=== PATIENT | male | born 1950 | race Caucasian/White ===

== ENCOUNTER 2016-08-23 17:43 | Inpatient (IN) | payer MEDICARE, OTHER ==
[~2016-08-23 17:43] MED LIST: ROCURONIUM BROMIDE INJ 50 MG/5 ML VIAL IV ONE; SUCCINYLCHOLINE CHLORIDE INJ 200 MG/10 ML VIAL ONE
[2016-08-23] MEDS ORDERED: NORMAL SALINE 1000 ML 1,000 ML IV ONE (18:26)
[2016-08-23] MEDS ORDERED: MORPHINE SULFATE 10 MG/ML INJ IV PRN (18:26)
--- NOTE | 2016-08-23 18:26 | ER Document Report ---
ED General - General Stated Complaint: ABDOMINAL PAIN Time Seen by Provider: 08/23/16 18:13 Notes: Patient is a 65-year-old male with a complex past medical history including hypertension, hyperlipidemia, prior throat cancer, prior lung cancer both treated with local radiation and surgical removal, prior history of a CABG, multiple aortic aneurysm repairs in the abdomen which has required a tracheostomy and feeding tube placement in the past, ongoing tobacco and alcohol dependency who presents with acute onset of progressively worsening abdominal pain. Patient states 3-4 hours ago he began developing progressively worse diffuse, cramping, aching pain in his abdomen. He has multiple associated episodes of nonbilious vomiting. Nothing improves or worsens the pain. He denies any history of similar symptoms in the past. He arrives via EMS. Denies any associated chest pain, shortness of breath or altered mental status. TRAVEL OUTSIDE OF THE [place] IN LAST 30 DAYS: No - Related Data Allergies/Adverse Reactions: acetaminophen [From Percocet] Allergy (Verified 08/23/16 19:20) levofloxacin [From Levaquin] Allergy (Verified 08/23/16 19:20) lorazepam [From Ativan] Allergy (Verified 08/23/16 19:20) morphine Allergy (Verified 08/23/16 19:20) oxycodone [From Percocet] Allergy (Verified 08/23/16 19:20) Penicillins Allergy (Verified 08/23/16 19:20) Home Medications: Current Home Medications Aspirin [[place] Aspirin] 81 mg PO DAILY 08/24/16 [History] Past Medical History - General Information source: Patient - Social History Smoking Status: Current Every Day Smoker Frequency of alcohol use: Heavy Drug Abuse: None Lives with: Spouse/Significant other Family History: Reviewed & Not Pertinent Review of Systems - Review of Systems Notes: Constitutional: Negative for fever. HENT: Negative for sore throat. Eyes: Negative for visual changes. Cardiovascular: Negative for chest pain. Respiratory: Negative for shortness of breath. Gastrointestinal: Positive for abdominal pain and vomiting Genitourinary: Negative for dysuria. Musculoskeletal: Negative for back pain. Skin: Negative for rash. Neurological: Negative for headaches, weakness or numbness. 10 point ROS negative except as marked above and in HPI. Physical Exam - Vital signs Vitals: Temp Pulse Resp BP Pulse Ox 98 F 98 22 H 171/77 H 100 08/23/16 17:55 08/23/16 17:55 08/23/16 17:55 08/23/16 17:55 08/23/16 17:55 Interpretation: Hypertensive, Tachypneic Notes: PHYSICAL EXAMINATION: GENERAL: Ill in appearance, appears to be in significant pain. HEAD: Atraumatic, normocephalic. EYES: Pupils equal round and reactive to light, extraocular movements intact, sclera anicteric, conjunctiva are normal. ENT: nares patent, oropharynx clear without exudates. Dry mucous membranes. NECK: Normal range of motion, supple without lymphadenopathy LUNGS: Breath sounds clear to auscultation bilaterally and equal. No wheezes rales or rhonchi. HEART: Regular rate and rhythm without murmurs ABDOMEN: Mildly distended, diffusely tender worse in the upper quadrants. No rebound but has diffuse involuntary guarding. Concerning for an acute abdomen. EXTREMITIES: Normal range of motion, no pitting or edema. No cyanosis. NEUROLOGICAL: No focal neurological deficits. Moves all extremities spontaneously and on command. PSYCH: Normal mood, normal affect. SKIN: Warm, Dry, normal turgor, no rashes or lesions noted. Course - Re-evaluation Re-evalutation: 08/23/16 18:24 Patient presents with acute onset of upper abdominal pain with associated nonbilious vomiting that started approximately 2 hours prior to arrival. Patient is ill in appearance, slightly icteric skin, in obvious distress secondary to pain. Vitals are notable for hypertension but otherwise unremarkable. His abdominal exam shows diffuse abdominal tenderness worse in the upper quadrant although patient is complaining significantly about pain radiating into his mid back when laying flat. He denies any chest pain or shortness of breath. Primary diagnostic considerations at this time include acute pancreatitis, acute cholecystitis, possible aortic dissection or aneurysmal rupture as patient does have a history of several prior aortic repairs. Patient will be sent for CTA of the abdomen and pelvis to evaluate as well as labs, symptomatic treatment and reassessment. Patient is critically ill at this time with an acute abdomen. 08/23/16 19:48 CTA was findings consistent with a volvulus. I discussed this with the surgeon oil and gas exploration technician Dr. Tong who will consult. Patient remains ill in appearance, diffusely tender abdomen 08/23/16 20:44 I have discussed this case with the patient, his , Dr. Tong extensively at the bedside. The family had originally requested to be transferred to [facility] for the surgical management given their prior evaluations at that facility. However, I reviewed with him the delaying care that would result with either ground or air transport and the possible adverse events secondary to that including gut ischemia and worse case scenario . After reviewing risks and benefits of each approach, the family became agreeable to being admitted here and going to the operating room with Dr. Tong. Remains in significant pain despite IV analgesia. - Vital Signs Vital signs: Temp Pulse Resp BP Pulse Ox 97.0 F 66 12 172/72 H 97 08/23/16 23:37 08/23/16 23:37 08/23/16 23:37 08/23/16 23:37 08/24/16 00:11 - Laboratory Result Diagrams: 08/24/16 00:06 08/24/16 00:06 Laboratory results interpreted by me: 08/23/16 08/23/16 18:20 18:20 WBC 12.8 H RBC 4.30 L MCV 101 H Seg Neuts % (Manual) 87 H Band Neutrophils % 1 L Lymphocytes % (Manual) 1 L Abs Neuts (Manual) 11.3 H Abs Lymphs (Manual) 0.3 L Sodium 130.6 L Chloride 93 L Glucose 159 H - Diagnostic Test Radiology reviewed: Reports reviewed - EKG Interpretation by Me Additional EKG results interpreted by me: 08/24/16 02:32 Sinus rhythm. Rate 64. No ST elevations or depressions. QTC is 504. Critical Care Note - Critical Care Note Total time excluding time spent on procedures (mins): 40 Comments: Critical care time spent obtaining history from patient or surrogate, discussions with consultants, development of treatment plan with patient or surrogate, evaluation of patient's response to treatment, examination of patient , ordering and performing treatments and interventions, ordering and review of laboratory studies, re-evaluation of patient's condition, ordering and review of radiographic studies and review of old charts Discharge - Discharge Clinical Impression: Volvulus, Acute abdomen Condition: Critical Disposition: ADMITTED INPATIENT Admitting Provider: Lennieist Nacho Tong Unit Admitted: OR
[2016-08-23 18:36] LABS: HEMATOCRIT 43.6 % (37.9-51.0); HEMOGLOBIN 14.4 g/dL (13.5-17.0); HGB HCT DIFFERENCE -0.4; MEAN CORPUSCULAR HEMOGLOBIN 33.4 pg (27.0-33.4); MEAN CORPUSCULAR VOLUME 101 fl (80-97); RED CELL DISTRIBUTION WIDTH 13.2 % (11.5-14.0); WHITE BLOOD COUNT 12.8 10^3/uL (4.0-10.5)
[2016-08-23 18:52] LABS: ALANINE AMINOTRANSFERASE 32 U/L (21-72); ALBUMIN 4.8 g/dL (3.5-5.0); ALKALINE PHOSPHATASE 100 U/L (38-126); ANION GAP 16 (5-19); ASPARTATE AMINO TRANSFERASE 29 U/L (17-59); BILIRUBIN,DIRECT 0.4 mg/dL (0.0-0.4); BILIRUBIN,TOTAL 0.9 mg/dL (0.2-1.3); BLOOD UREA NITROGEN 17 mg/dL (7-20); CARBON DIOXIDE 22 mmol/L (22-30); CHLORIDE 93 mmol/L (98-107); CREATININE RESULT 0.65 mg/dL (0.52-1.25); GLUCOSE 159 mg/dL (75-110); LIPASE 43.6 U/L (23-300); POTASSIUM 4.2 mmol/L (3.6-5.0); SODIUM 130.6 mmol/L (137-145); TOTAL PROTEIN 7.9 g/dL (6.3-8.2)
[2016-08-23 19:01] LABS: BAND NEUTROPHILS % (MANUAL) 1 % (3-5); BASOPHILS % (MANUAL) 0 % (0-2); EOSINOPHILS % (MANUAL) 0 % (0-6); LYMPHOCYTES % (MANUAL) 1 % (13-45); TOTAL CELLS COUNTED 100
[2016-08-23 19:02] LABS: RBC MORPHOLOGY COMMENT NORMO-CYTIC/CHROMIC
[2016-08-23] MEDS: FENTANYL CITRATE INJ/PF 100 MCG/2 ML AMPUL IV PRN ×2 (19:14→20:34)
--- NOTE | 2016-08-23 19:18 | RADIOLOGY REPORT (SQ) ---
EXAM DESCRIPTION: CTA ABDOMEN/PELVIS W WO COMPLETED DATE/TIME: 08/23/2016 6:50 pm REASON FOR STUDY: acute upper ab pain, hx aaa COMPARISON: None. TECHNIQUE: CT scan of the abdominal aorta extending to the iliac bifurcation performed with and with out intravenous contrast using helical scanning technique with dynamic intravenous contrast injection . Images reviewed with lung, soft tissue, and bone windows. Reconstructed coronal and sagittal MPR im ages reviewed. All images stored on PACS. Advanced 3D imaging as volume rendering, MIPS, SSD performed? yes All CT scanners at this facility use dose modulation, iterative reconstruction, and/or weight based d osing when appropriate to reduce radiation dose to as low as reasonably achievable (ALARA). [facility]: Dose Right [facility]: CareDose [facility]: Dose Right [facility]: Teradose 4D [facility]: Evomail CONTRAST TYPE AND DOSE: contrast/concentration: Isovue 370.00 mg/ml; Total Contrast Delivered: 100.0 ml; Total Saline Delivered: 90.0 ml RENAL FUNCTION: Due to the severity of the patient's condition, the ordering physician elected to pr oceed with intravenous contrast in the absence of current labs. LIMITATIONS: None. FINDINGS: NON-CONTRASTED IMAGING: No significant renal or bladder calcifications. No other significa nt organ calcifications. POST-CONTRAST IMAGING: AORTA AND VESSELS: Status post EVAR of an infrarenal abdominal aortic aneurysm without evidence of en doleak. LUNG BASES: No significant findings. No nodules or infiltrates. LIVER: Normal size. No masses or dilated ducts. SPLEEN: Normal size. No focal lesions. PANCREAS: No masses. No significant calcifications. No adjacent inflammation or peripancreatic fluid collections. Pancreatic duct not dilated. GALLBLADDER: No identified stones by CT criteria. No inflammatory changes to suggest cholecystitis. ADRENAL GLANDS: No significant masses or asymmetry. RIGHT KIDNEY AND URETER: Sub cm hypoattenuating foci likely on the basis of tiny renal cysts. LEFT KIDNEY AND URETER: Few simple renal cysts, the largest measuring 4.3 x 3.6 x 3.6 cm. RETROPERITONEUM: No retroperitoneal adenopathy, hemorrhage or masses. BOWEL AND PERITONEAL CAVITY: Limited in the absence of intraluminal contrast; note is made of multipl e fluid distended loops of small bowel with air-fluid levels and mesenteric fluid tracking. Few scat tered colonic diverticula without focal infectious/inflammatory change. Notably, there appears to be a "whirl sign" of the mesenteric vessels, suggesting midgut volvulus (this is best visualized on ar terial phase axial images 79 through 113). APPENDIX: Not visualized. ABDOMINAL WALL: No masses. No hernias. BONY STRUCTURES: No significant or acute findings. 3-D IMAGING: Confirms the above findings. OTHER: No other significant finding. IMPRESSION: 1. Status post EVAR without evidence of endoleak. 2. Multiple fluid distended loops of small bowel with air-fluid levels and mesenteric fluid tracking . 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 TECHNICAL DOCUMENTATION: JOB ID: [id number] Quality ID # [id number]: Final reports with documentation of one or more dose reduction techniques (e.g., Au tomated exposure control, adjustment of the mA and/or kV according to patient size, use of iterative reconstruction technique) 2010 [employer]- All Rights Reserved
[2016-08-23] MEDS ORDERED: MIDAZOLAM 2 MG/2 ML INJ IV ONE (19:26)
[2016-08-23] MEDS ORDERED: ERTAPENEM SODIUM INJ 1 GM VIAL IV PRN (20:46)
[2016-08-23 21:25] LABS: ARTERIAL BLOOD BASE EXCESS -1.5 mmol/L; ARTERIAL BLOOD O2 SATURATION 95.8 % (94-98)
[2016-08-23] MEDS ORDERED: PROPOFOL INJ 200 MG/20 ML VIAL IV ONE (21:26)
[2016-08-23] MEDS ORDERED: MIDAZOLAM 2 MG/2 ML INJ ONE (21:26)
[2016-08-23] MEDS ORDERED: FENTANYL CITRATE INJ/PF 250 MCG/5 ML AMPULE ONE (21:26)
[2016-08-23] MEDS ORDERED: ACETAMINOPHEN 0 ML IV ONE (21:27)
[2016-08-23] MEDS ORDERED: HYDROMORPHONE HCL INJ/PF 2 MG/ML AMPULE ONE (21:27)
[2016-08-23] MEDS ORDERED: ERTAPENEM SODIUM 1 GM in NORMAL SALINE 50 ML IV ONE (21:30)
--- NOTE | 2016-08-23 21:46 | RADIOLOGY REPORT (SQ) ---
EXAM DESCRIPTION: CHEST SINGLE VIEW COMPLETED DATE/TIME: 08/23/2016 9:23 pm REASON FOR STUDY: preop COMPARISON: 10/23/2011 EXAM PARAMETERS: NUMBER OF VIEWS: One view. TECHNIQUE: Single frontal radiographic view of the chest acquired. RADIATION DOSE: NA LIMITATIONS: None. FINDINGS: LUNGS AND PLEURA: No opacities, masses or pneumothorax. No pleural effusion. MEDIASTINUM AND HILAR STRUCTURES: No masses. Contour normal. HEART AND VASCULAR STRUCTURES: Heart normal in size. Normal vasculature. BONES: No acute findings. HARDWARE: In enteric tube terminates subdiaphragmatically within the left upper quadrant. Median bre rnotomy wires are again noted. OTHER: No other significant finding. IMPRESSION: NO ACUTE RADIOGRAPHIC FINDING IN THE CHEST. TECHNICAL DOCUMENTATION: JOB ID: [id number]
[2016-08-23] MEDS ORDERED: LABETALOL HCL INJ 20 MG/4 ML DISP.SYRIN IV ONE (22:18)
[2016-08-23] MEDS ORDERED: HYDRALAZINE HCL INJ/PF 20 MG/1 ML SDV ONE (22:19)
[2016-08-23] MEDS ORDERED: PROMETHAZINE HCL INJ 25 MG/1 ML VIAL IV PRN ×2 (22:46)
[2016-08-23] MEDS ORDERED: FENTANYL CITRATE INJ/PF 100 MCG/2 ML AMPUL IV PRN ×3 (22:46)
[2016-08-23] MEDS ORDERED: MEPERIDINE HCL/PF INJ 25 MG/1 ML DISP.SYRIN IV PRN (22:46)
[2016-08-23] MEDS ORDERED: DIPHENHYDRAMINE HCL 50 MG/ML VIAL IV PRN (22:46)
--- NOTE | 2016-08-23 23:45 | HISTORY AND PHYSICAL E ---
History and Physical NAME: CHUNG HI : 1950 AGE: 65Y ADMITTED: 08/23/2016 ROOM: ED06 REASON FOR ADMISSION: Acute abdominal pain. HISTORY OF PRESENT ILLNESS: The patient is a 65-year-old male who earlier today at approximately 11 a.m. had severe onset of diffuse abdominal pain. This is the first time he has had this occur. He has been having normal bowel movements up to that point. He has had upset stomach and so his had given him some Pepto-Bismol. He had promptly vomited this up. The pain persisted and was constant. It was 11/25, because of this he was then brought to the hospital by ambulance. PAST MEDICAL HISTORY: 1. Peripheral arterial disease. 2. History of possible right lung cancer versus benign lesion. Undergoing what appears to be VATS a year ago. 3. History of throat cancer. Undergoing radiation in which he may have some scar tissue still in his throat that ENT was going to remove as an outpatient in the near future. 4. History of abdominal aortic aneurysm. Undergoing open repair endovascular due to some type of complication or problems with it. 5. Hypothyroidism. 6. Hypercholesterolemia. 7. Hypertension. 8. Gastroesophageal reflux. 9. Anxiety. 10. Tobacco dependency. 11. Alcohol dependency. PAST SURGICAL HISTORY: 1. Abdominal aortic aneurysm repair and then endovascular afterwards for unknown complication. 2. Coronary artery bypass. 3. Right lung surgery. 4. Bilateral inguinal hernia repair. MEDICATIONS: 1. Aspirin. 2. Venlafaxine. 3. Omeprazole. 4. Levothyroxine. 5. Pilocarpine. 6. Atorvastatin. 7. Ramipril. HABITS: The patient smokes 2 packs of cigarettes a day. He drinks alcohol each day but he is not able to quantitate, as some days he does not drink at all. FAMILY HISTORY: Mother with history of peripheral arterial disease and coronary artery disease. SOCIAL HISTORY: The patient is . ALLERGIES: 1. LEVAQUIN. 2. MORPHINE. 3. PERCOCET. 4. PENICILLIN. 5. ATIVAN. REVIEW OF SYSTEMS: GASTROINTESTINAL: Dysphagia. Abdominal pain with some emesis earlier today. PULMONARY: Some shortness of breath. CARDIOVASCULAR: Denies any current chest pain. EXTREMITIES: Denies any claudication or lower extremity swelling. PHYSICAL EXAMINATION: VITAL SIGNS: Temperature is 98, blood pressure 171/77, respiratory rate is 22. GENERAL: The patient is lying in bed. He is anxious due to feeling hot and anxiety. EYES: Not icteric. NECK: No lymphadenopathy. HEART: Regular. LUNGS: Diminished due to decreased inspiration. ABDOMEN: Mildly distended, diffusely tender. It is not rigid. There is no abdominal hernias being palpated. He has midline incisional scar. CHEST: Midline scar. EXTREMITIES: No edema or cyanosis. NEUROLOGIC: The patient appears to be neurologically intact without any deficits. PSYCHOLOGICAL: The patient is anxious but is able to answer questions. DIAGNOSTIC DATA: CT scan of the abdomen and pelvis shows dilated small bowel with a swirl sign that is highly suspicious for small intestinal volvulus. White blood cell count is 13,000; hemoglobin 14; platelets of 236. Sodium 130, creatinine of 0.65. ASSESSMENT: 1. Acute onset of abdominal pain. CT scan is suggestive of a mid volvulus. I have explained that this is a surgical emergency and that he needs to have surgery as soon as possible. They initially had wanted to go up to [place] but time constraints would be too much since their surgeon is going into surgery and I would not recommend waiting until that is finished. Family understands and agrees to have surgery here at [facility]. The surgery would be exploratory laparotomy, possible bowel resection, possible ostomy. Risks and possible complications of the procedure have been explained, include but not limited to bleeding, infection, anesthesia risk, heart and lung problems, wound healing problems, hernia formation, anastomotic leak, injury to abdominal structures, enterotomies, possible removal of a large section of small bowel with short gut syndrome needing beyond enteric nutrition the rest of his life, transfusion reactions. He accepts the risks and wishes to proceed with the procedure. 2. History of chronic tobacco use with probable lung disease. We will need to see if he will be off the ventilator after surgery or not. The hospitalist will help follow the patient postoperatively in the Intensive Care Unit. 3. Hypothyroidism, on medication. 4. Dysphagia, which he has scar tissue and ENT to evaluate with surgery in the near future. It does not seem at this time to pose a problem but certainly could with intubation and this will need to be evaluated here closely. 5. Coronary artery disease, status post coronary artery bypass graft. He will get an EKG prior. PLAN: 1. The patient will be admitted to the hospital. 2. NPO. 3. IV fluids. 4. IV antibiotics. 5. NG tube to low wall suction. 6. Lactic acid. 7. A 12-lead EKG, chest x-ray, and ABG. 8. Exploratory laparotomy and possible bowel resection, possible ostomy. DICTATING PHYSICIAN: ELIDA TORRES M.D. [id number] PHY#: [id number] ID: [id number] JOB#: [id number] ACCT: [id number] cc:ELIDA TORRES M.D. >
[2016-08-24] MEDS ORDERED: DEXTROSE 5%-LACTATED RINGERS 1,000 ML IV PRN (00:01)
[2016-08-24] MEDS ORDERED: PROPOFOL 100 ML IV ONE (00:06)
[2016-08-24 00:24] LABS: MEAN CORPUSCULAR HEMOGLOBIN 33.6 pg (27.0-33.4); MEAN CORPUSCULAR HGB CONC 33.4 g/dL (32.0-36.0); MEAN CORPUSCULAR VOLUME 101 fl (80-97); RED BLOOD COUNT 4.48 10^6/uL (4.35-5.55); RED CELL DISTRIBUTION WIDTH 12.9 % (11.5-14.0); WHITE BLOOD COUNT 11.6 10^3/uL (4.0-10.5)
[2016-08-24 00:32] LABS: BAND NEUTROPHILS % (MANUAL) 2 % (3-5); BASOPHILS % (MANUAL) 0 % (0-2); EOSINOPHILS % (MANUAL) 0 % (0-6); LYMPHOCYTES % (MANUAL) 1 % (13-45); TOTAL CELLS COUNTED 100
[2016-08-24 00:34] LABS: PLATELET CLUMPS PRESENT; TOXIC VACUOLATION PRESENT
[2016-08-24 00:35] LABS: RBC MORPHOLOGY COMMENT NORMO-CYTIC/CHROMIC
[2016-08-24 00:39] LABS: ALANINE AMINOTRANSFERASE 33 U/L (21-72); ALKALINE PHOSPHATASE 68 U/L (38-126); ANION GAP 12 (5-19); ASPARTATE AMINO TRANSFERASE 28 U/L (17-59); BILIRUBIN,DIRECT 0.4 mg/dL (0.0-0.4); BILIRUBIN,TOTAL 0.6 mg/dL (0.2-1.3); BLOOD UREA NITROGEN 15 mg/dL (7-20); CALCIUM 8.9 mg/dL (8.4-10.2); CARBON DIOXIDE 23 mmol/L (22-30); CHLORIDE 97 mmol/L (98-107); CREATININE RESULT 0.63 mg/dL (0.52-1.25); GLUCOSE 178 mg/dL (75-110); POTASSIUM 4.1 mmol/L (3.6-5.0); TOTAL PROTEIN 6.7 g/dL (6.3-8.2)
--- NOTE | 2016-08-24 00:42 | RADIOLOGY REPORT (SQ) ---
EXAM DESCRIPTION: CHEST SINGLE VIEW COMPLETED DATE/TIME: 08/24/2016 12:32 am REASON FOR STUDY: et tube placement COMPARISON: 08/23/2016. 10/23/2011. EXAM PARAMETERS: NUMBER OF VIEWS: One view. TECHNIQUE: Single frontal radiographic view of the chest acquired. RADIATION DOSE: NA LIMITATIONS: None. FINDINGS: LUNGS AND PLEURA: Mild emphysematous hyperinflation. MEDIASTINUM AND HILAR STRUCTURES: No masses. Contour normal. HEART AND VASCULAR STRUCTURES: Heart normal in size. Normal vasculature. BONES: No acute findings. HARDWARE: Adequate appearing NG tube and endotracheal tube. Prior sternotomy. OTHER: No other significant finding. IMPRESSION: No acute cardiopulmonary findings. TECHNICAL DOCUMENTATION: JOB ID: [id number]
[2016-08-24] MEDS ORDERED: HYDRALAZINE HCL INJ/PF 20 MG/1 ML SDV IV PRN (00:46)
[2016-08-24] MEDS ORDERED: PROPOFOL 100 ML IV PRN (00:53)
[2016-08-24] MEDS ORDERED: NORMAL SALINE 1000 ML 1,000 ML IV ONE (01:00)
[2016-08-24] MEDS: HYDROMORPHONE HCL INJ/PF 2 MG/ML AMPULE IV PRN ×8 (02:42→23:40)
--- NOTE | 2016-08-24 04:03 | OPERATIVE REPORT E ---
Operative Report NAME: CHUNG HI : 1950 AGE: 65Y DATE OF SURGERY: 08/23/2016 ROOM: 603 PREOPERATIVE DIAGNOSIS: Acute abdomen, probably secondary to mid gut volvulus. POSTOPERATIVE DIAGNOSES: 1. 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 2. Small multiple ventral incisional hernias. 3. Intraabdominal adhesions. OPERATIONS: 1. Exploratory laparotomy. 2. Extensive lysis of adhesions. 3. Reduction of mid gut volvulus. 4. Repair of multiple small ventral incisional hernias primarily. SURGEON: ELIDA TORRES M.D. ANESTHESIA: General. INDICATION FOR PROCEDURES: The patient a 65-year-old male, who had previous triple A repair in the past. He now presents with acute onset of abdominal pain, nausea and vomiting. He came to the emergency room and a CT scan of the abdomen and pelvis was suspicious for mid gut volvulus. FINDINGS OF PROCEDURES: The patient's almost entire small bowel was involved in a twist around the axis of the mesentery, just sparing the terminal ileum region. The bowel was dusky upon entering the abdominal cavity. Extensive lysis of adhesions was needed in order to allow full reduction and untwisting of the bowel. This took at a minimum 1-1/2 hours to perform. Once adequate lysis of adhesion was performed, I was able to untwist the small bowel counter clockwise. Once I had untwisted and had straightened out the mesentery, the bowel quickly pinked up without any areas that were suspicious for continue ischemia or necrosis. I was then able to return the small bowel back to the abdominal cavity, laying it so that there was no area being twisted. Small ventral incisional hernias had the hernia sac opened up with the subcutaneous tissue then dissected off of the surrounding fascia defect. The midline abdominal incision was then closed using running #1 PDS suture. The skin was stapled closed. Dry dressing was placed on top. The patient was then awakened, extubated and taken from the operating room in stable condition. ESTIMATED BLOOD LOSS: 100 mL. COMPLICATIONS: None. CONDITION: At the end of the procedure, the patient was stable. SPECIMENS: None. DRAINS/PACKS: None. CLASSIFICATION: The wound is clean. DICTATING PHYSICIAN: ELIDA TORRES M.D. [id number] PHY#: [id number] ID: [id number] JOB#: [id number] ACCT: [id number] cc:ELIDA TORRES M.D. > MTDD
[2016-08-24 04:23] LABS: HEMATOCRIT 41.9 % (37.9-51.0); HEMOGLOBIN 13.5 g/dL (13.5-17.0); HGB HCT DIFFERENCE -1.4; MEAN CORPUSCULAR HEMOGLOBIN 32.6 pg (27.0-33.4); MEAN CORPUSCULAR HGB CONC 32.2 g/dL (32.0-36.0); MEAN CORPUSCULAR VOLUME 101 fl (80-97); RED BLOOD COUNT 4.14 10^6/uL (4.35-5.55); WHITE BLOOD COUNT 12.5 10^3/uL (4.0-10.5)
[2016-08-24 04:41] LABS: ANION GAP 10 (5-19); BLOOD UREA NITROGEN 17 mg/dL (7-20); CALCIUM 8.6 mg/dL (8.4-10.2); CARBON DIOXIDE 24 mmol/L (22-30); CHLORIDE 96 mmol/L (98-107); CREATININE RESULT 0.68 mg/dL (0.52-1.25); GLUCOSE 213 mg/dL (75-110); POTASSIUM 3.8 mmol/L (3.6-5.0); SODIUM 129.7 mmol/L (137-145); TRIGLYCERIDES 43 mg/dL (<150)
--- NOTE | 2016-08-24 05:24 | PDOC CONSULTATION ---
Consultation Consult Date: 08/23/16 Attending physician:: TRACI TORRES Consult reason:: Postop medical management History of Present Illness Admission Date/PCP: 08/23/16 21:11 Patient complains of: Medical management of postop volvulus History of Present Illness: CHUNG HI is a 65 year old male with an extensive past medical history including AAA repair, coronary artery bypass grafting, tobacco dependence, peripheral vascular disease, lung, head and neck cancer status post resection. He presents to the emergency room with abdominal pain and distention. He requires operative evaluation finding volvulus with adhesions without necrosis. Postoperatively he is intubated, sedated appearing comfortable on ventilator at current settings. Additional history is unavailable as the patient is nonverbal and not previously seen in our institution. Past Medical History Cardiac Medical History: Reports: Coronary Artery Disease, Hyperlipidema, Hypertension, Peripheral Vascular Disease Malignancy Medical History: Reports: Lung Cancer, Other - Head and neck cancer status post resection remotely Musculoskeltal Medical History: Reports: Arthritis Psychiatric Medical History: Reports: Tobacco Dependency Denies: Depression Past Surgical History Past Surgical History: Reports: Cardiac Catheterization, Coronary Artery Bypass Graft, Vascular Surgery Social History Information Source: [facility] Records Lives with: Spouse/Significant other Smoking Status: Current Every Day Smoker Cigarettes Packs Per Day: 2 Number of Years Smokin Last Time Smoked: 08/23/16 Frequency of Alcohol Use: Heavy Hx Recreational Drug Use: No Drugs: None Hx Prescription Drug Abuse: No - Advance Directive Resuscitation Status: Full Code Family History Family History: Reviewed & Not Pertinent Parental Family History Reviewed: Yes - Unobtainable Children Family History Reviewed: Yes - Unobtainable Sibling(s) Family History Reviewed.: Yes - Unobtainable Medication/Allergy Home Medications: Aspirin [Aspirin EC] 81 mg PO DAILY 08/24/16 Atorvastatin Calcium [Lipitor 20 mg Tablet] 20 mg PO QHS 08/24/16 Cholecalciferol (Vitamin D3) [Vitamin D3 1000 Unit Tablet] 1,000 units PO DAILY 08/24/16 Cyanocobalamin (Vitamin B-12) [Vitamin B-12] 1,000 mcg PO QAM 08/24/16 Levothyroxine Sodium [Synthroid] 125 mcg PO DAILY 08/24/16 Omeprazole 20 mg PO BID 08/24/16 Pilocarpine HCl 5 mg PO TID 08/24/16 Ramipril [Altace 5 mg Capsule] 5 mg PO QAM 08/24/16 Thiamine HCl [Vitamin B-1] 100 mg PO DAILY 08/24/16 Venlafaxine HCl [Venlafaxine HCl ER] 75 mg PO BID 08/24/16 Allergies/Adverse Reactions: acetaminophen [From Percocet] Allergy (Verified 08/23/16 19:20) levofloxacin [From Levaquin] Allergy (Verified 08/23/16 19:20) lorazepam [From Ativan] Allergy (Verified 08/23/16 19:20) morphine Allergy (Verified 08/23/16 19:20) oxycodone [From Percocet] Allergy (Verified 08/23/16 19:20) Penicillins Allergy (Verified 08/23/16 19:20) Review of Systems ROS unobtainable: Due to mental status - Intubated and sedated Physical Exam Vital Signs: Temp Pulse Resp BP Pulse Ox 97.7 F 66 12 78/55 L 96 08/24/16 04:00 08/23/16 23:37 08/24/16 03:02 08/24/16 03:02 08/24/16 04:00 Intake & Output 08/22/16 08/23/16 08/24/16 11:59 11:59 11:59 Weight 69.3 kg General appearance: PRESENT: no acute distress, thin, other - Intubated sedated appearing comfortable on ventilator settings Head exam: PRESENT: other - Status post radical neck dissection Eye exam: PRESENT: conjunctiva pink, EOMI, PERRLA. ABSENT: scleral icterus Ear exam: PRESENT: normal external ear exam Mouth exam: PRESENT: moist, tongue midline Neck exam: ABSENT: carotid bruit, JVD, lymphadenopathy, thyromegaly Respiratory exam: PRESENT: crackles, prolonged expiratory phas, symmetrical. ABSENT: rales, rhonchi, stridor, tachypnea, wheezes Cardiovascular exam: PRESENT: RRR. ABSENT: diastolic murmur, rubs, systolic murmur Pulses: PRESENT: normal dorsalis pedis pul Vascular exam: PRESENT: normal capillary refill GI/Abdominal exam: PRESENT: diminished bowel sounds, hypoactive bowel sounds, other - Surgical dressing in place. ABSENT: ascites, distended, guarding Rectal exam: PRESENT: deferred Extremities exam: PRESENT: full ROM. ABSENT: calf tenderness, clubbing, pedal edema Neurological exam: PRESENT: other - Heavily sedated. ABSENT: motor sensory deficit Skin exam: PRESENT: dry, intact, warm. ABSENT: cyanosis, rash Results Laboratory Results: 08/24/16 03:49 08/24/16 03:49 08/24/16 08/24/16 08/24/16 00:06 00:06 00:06 WBC 11.6 H RBC 4.48 Hgb 15.0 Hct 45.0 MCV 101 H MCH 33.6 H MCHC 33.4 RDW 12.9 Plt Count 206 Seg Neutrophils % Not Reportable Lymphocytes % Not Reportable Monocytes % Not Reportable Eosinophils % Not Reportable Basophils % Not Reportable Absolute Neutrophils Not Reportable Absolute Lymphocytes Not Reportable Absolute Monocytes Not Reportable Absolute Eosinophils Not Reportable Absolute Basophils Not Reportable Sodium 132.0 L Potassium 4.1 Chloride 97 L Carbon Dioxide 23 Anion Gap 12 BUN 15 Creatinine 0.63 Est GFR ( Amer) > 60 Est GFR (Non-Af Amer) > 60 Glucose 178 H Lactic Acid 1.5 Calcium 8.9 Total Bilirubin 0.6 AST 28 ALT 33 Alkaline Phosphatase 68 Total Protein 6.7 Albumin 4.0 Triglycerides 08/24/16 08/24/16 03:49 03:49 WBC 12.5 H RBC 4.14 L Hgb 13.5 Hct 41.9 MCV 101 H MCH 32.6 MCHC 32.2 RDW 13.0 Plt Count 220 Seg Neutrophils % Lymphocytes % Monocytes % Eosinophils % Basophils % Absolute Neutrophils Absolute Lymphocytes Absolute Monocytes Absolute Eosinophils Absolute Basophils Sodium 129.7 L Potassium 3.8 Chloride 96 L Carbon Dioxide 24 Anion Gap 10 BUN 17 Creatinine 0.68 Est GFR ( Amer) > 60 Est GFR (Non-Af Amer) > 60 Glucose 213 H Lactic Acid Calcium 8.6 Total Bilirubin AST ALT Alkaline Phosphatase Total Protein Albumin Triglycerides 43 Impressions: Abdomen/Pelvis CTA 08/23/16 18:24 IMPRESSION: 1. Status post EVAR without evidence of endoleak. 2. Multiple fluid distended loops of small bowel with air-fluid levels and mesenteric fluid tracking. 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 Chest X-Ray 08/24/16 00:01 IMPRESSION: No acute cardiopulmonary findings. Assessment & Plan - Diagnosis (1) COPD (chronic obstructive pulmonary disease) Is this a current diagnosis for this admission?: YesPlan: Currently tolerating vent settings with minute ventilation of 11, will obtain ABG scheduled nebulizer with albuterol and Atrovent every 8 hours. Consider pulmonology consultation if unable to meet weaning parameters rapidly (2) Coronary artery disease Is this a current diagnosis for this admission?: YesPlan: Uncontrolled hypertension, optimize pain management and sedation. MARK inhibitor as needed consider cardiac enzymes. EKG is notable for a long QT interval (3) Peripheral vascular disease Is this a current diagnosis for this admission?: YesPlan: Avoid hypotension given widespread vasculopathy. Consider lactic acid level and if hypotensive consider low-dose dopamine (4) Alcohol dependence Is this a current diagnosis for this admission?: YesPlan: Thiamine folate as needed benzodiazepine - Time Time Spent: 30 to 50 Minutes - Inpatient Certification Medical Necessity: Need Close Monitoring Due to Risk of Patient Decompensation
[2016-08-24] MEDS ORDERED: RAMIPRIL 5 MG CAPSULE PO SCH (08:00)
--- NOTE | 2016-08-24 08:05 | EKG REPORT ---
SEVERITY:- ABNORMAL ECG - SINUS RHYTHM NONSPECIFIC INTRAVENTRICULAR CONDUCTION DELAY LEFT VENTRICULAR HYPERTROPHY : Confirmed by: Obed Mederos MD 24-Aug-2016 08:04:23
--- NOTE | 2016-08-24 09:09 | PROGRESS NOTE E ---
Progress Note NAME: CHUNG HI : 1950 AGE: 65Y DATE: 08/24/2016 ROOM: 603 SUBJECTIVE: The patient is lying in bed, he will awaken, he is off sedation. At this time he remains intubated. The patient did come out to the ICU from the OR last night. The patient has had no reported episodes of vomiting. No diarrhea. The patient does admit to some abdominal pain, but appears to be very sensitive to pain medication as his blood pressure did drop when he was given opiates. The patient has been afebrile. He has been mapping around 64% at this time. The patient does not voice any specific concerns at this time. REVIEW OF SYSTEMS: A full review of systems cannot be appreciated given the patient's intubation. OBJECTIVE: GENERAL: The patient is a well developed, reasonably nourished, 65-year-old, male, who is awake, alert. He is oriented to place; unable to fully assess orientation though. VITAL SIGNS: Are as follows: Temperature 97.7, pulse 76, respirations 18, blood pressure 93/63, oxygen saturation is 98% on 30% FiO2. SKIN: Warm and dry. No rash. Not diaphoretic. HEENT: Pupils equal, round, reactive to light and accommodation. Conjunctivae pink. ET tube in place with Zena. CARDIOVASCULAR SYSTEM: Heart is regular with no murmur or rub. CHEST: Clear, symmetrical, and unlabored. ABDOMEN: Postsurgical, no areas of tenderness. Hypoactive bowel sounds. EXTREMITIES: No clubbing, cyanosis, edema. Warm extremities to the touch. PSYCHIATRIC: Awake, alert, but unable to fully assess. DIAGNOSTICS: Lab values are as follows: Hematology obtained on 08/24/2016: WBC 12.5, hemoglobin 13.5, hematocrit 41.9, platelet count 220,000. Chemistry obtained on 08/24/2016: Sodium 129, potassium 5.8, chloride 96, carbon dioxide 24, BUN 17, creatinine 0.68, glucose 213, calcium 8.6, triglycerides 43. IMPRESSION AND PLAN: 1. VOLVULUS, STATUS POST OPERATIVE REPAIR. We will defer management to Surgery. 2. [id number]-[id number] HYPOXEMIC RESPIRATORY FAILURE. The patient remained intubated after surgery; however, he appears much more awake and alert. At this time he is oxygenating well on pressure support. We will proceed with extubation, proceed to nasal cannula, will continue nebulizers as needed and follow. 3. CORONARY ARTERY DISEASE. We will continue the patient on his home medications once able to take p.o. 4. PERIPHERAL VASCULAR DISEASE. We will monitor closely. The patient is very sensitive to opiates and ease of hypotension. 5. ALCOHOL DEPENDENCY. We will continue B vitamins and p.r.n. benzodiazepines if needed. 6. CHRONIC OBSTRUCTIVE PULMONARY DISEASE. We will goal set O2 saturations at 88-92%. 7. HYPERTENSION. The patient is actually mildly hypotensive at this time. We will resume home medications once the patient's blood pressures have improved. DISPOSITION: The patient is a FULL CODE. Pending patient's symptomatology and diagnostic findings, will reevaluate as needed. Time spent on this critical care note including assessment, plan, physical examination, patient education, and family meeting is 40 minutes. DICTATING PHYSICIAN: KERRI CELIS NP [id number] PHY#: [id number] ID: [id number] JOB#: [id number] ACCT: [id number] cc: >
[2016-08-24] MEDS ORDERED: PILOCARPINE HCL 5 MG PO SCH (10:00)
[2016-08-24] MEDS ORDERED: (PENDING PHARMACY ID) (Levothyroxine Sodium [Synthroid] 125 MCG) PO SCH (10:00)
[2016-08-24] MEDS ORDERED: CYANOCOBALAMIN (VITAMIN B-12) 1,000 MCG TABLET PO ONE (10:00)
[2016-08-24] MEDS: DEXTROSE 5%-NORMAL SALINE 1,000 ML IV PRN ×2 (10:18→23:32)
[2016-08-24] MEDS: LEVOTHYROXINE SODIUM 0.025 MG TABLET PO SCH (10:19)
[2016-08-24] MEDS: ASPIRIN 81 MG TABLET, ENT COATED PO SCH (10:20)
[2016-08-24] MEDS: VENLAFAXINE HCL 75 MG CAP.SR.24H PO SCH ×2 (10:21→18:08)
[2016-08-24] MEDS: CHOLECALCIFEROL (D3) 1,000 UNIT TABLET PO SCH (10:21)
[2016-08-24] MEDS: LEVOTHYROXINE SODIUM 0.1 MG TABLET PO SCH (10:22)
[2016-08-24] MEDS: LANSOPRAZOLE 15 MG TAB.RAP.DR PO SCH ×2 (10:22→18:08)
[2016-08-24] MEDS: THIAMINE HCL 100 MG TABLET PO SCH (10:22)
[2016-08-24] MEDS: ATORVASTATIN CALCIUM 20 MG TABLET PO SCH (22:43)
--- NOTE | 2016-08-25 00:28 | PROGRESS NOTE E ---
Progress Note NAME: CHUNG HI : 1950 AGE: 65Y DATE: 08/24/2016 ROOM: 317 SUBJECTIVE: The patient is postoperative day 1 from exposure of laparotomy, lysis of adhesions and reduction of mid gut and volvulus. He is doing much better now, being awake and extubated in the Intensive Care Unit. The patient just has some mild incisional pain relieved by the pain medication currently. He has an NG tube in place. OBJECTIVE: VITAL SIGNS: Blood pressure 141/61, temperature 98.7, pulse 68, respiration 18. The patient's abdominal incisional dressing is clean without any evidence of infection. DIAGNOSTIC DATA: White blood cell count of 12.5, hemoglobin of 13.5, platelets of 220,000. Sodium 130. ASSESSMENT: STATUS POST LAPAROTOMY, LYSIS OF ADHESIONS AND REDUCTION OF MID GUT VOLVULUS ALONG WITH VENTRAL INCISIONAL HERNIA REPAIR, POSTOPERATIVE DAY 1. He is slowly improving. At this time he can be transferred to the floor. I have recommended continuing NG tube at this time as he is still having some bilious output and he had significant swelling of the intestine. PLAN: 1. Transfer to the floor. 2. Continue n.p.o. and NG tube and IV fluids. 3. Mobilization as much as possible. DICTATING PHYSICIAN: ELIDA TORRES M.D. [id number] PHY#: [id number] ID: [id number] JOB#: [id number] ACCT: [id number] cc: >
[2016-08-25] MEDS: HYDROMORPHONE HCL INJ/PF 2 MG/ML AMPULE IV PRN ×6 (03:42→20:53)
[2016-08-25 05:11] LABS: ANION GAP 7 (5-19); BLOOD UREA NITROGEN 14 mg/dL (7-20); CALCIUM 8.6 mg/dL (8.4-10.2); CARBON DIOXIDE 27 mmol/L (22-30); CHLORIDE 100 mmol/L (98-107); CREATININE RESULT 0.47 mg/dL (0.52-1.25); GLUCOSE 115 mg/dL (75-110); POTASSIUM 3.7 mmol/L (3.6-5.0); SODIUM 134.3 mmol/L (137-145)
[2016-08-25] MEDS ORDERED: CYANOCOBALAMIN (VITAMIN B-12) 1,000 MCG TABLET PO SCH (08:00)
[2016-08-25] MEDS: RAMIPRIL 5 MG CAPSULE PO SCH (10:28)
[2016-08-25] MEDS: THIAMINE HCL 100 MG TABLET PO SCH (10:36)
[2016-08-25] MEDS: LEVOTHYROXINE SODIUM 0.1 MG TABLET PO SCH (10:37)
[2016-08-25] MEDS: LEVOTHYROXINE SODIUM 0.025 MG TABLET PO SCH (10:37)
[2016-08-25] MEDS: CHOLECALCIFEROL (D3) 1,000 UNIT TABLET PO SCH (10:37)
[2016-08-25] MEDS: LANSOPRAZOLE 15 MG TAB.RAP.DR PO SCH ×2 (10:37→17:02)
[2016-08-25] MEDS: VENLAFAXINE HCL 75 MG CAP.SR.24H PO SCH ×2 (10:37→17:14)
[2016-08-25] MEDS: ASPIRIN 81 MG TABLET, ENT COATED PO SCH (10:38)
[2016-08-25] MEDS ORDERED: POTASSI CL 20 MEQ/NS 1L 1,000 ML IV PRN (10:51)
[2016-08-25] MEDS ORDERED: HYDRALAZINE HCL INJ/PF 20 MG/1 ML SDV IV PRN (10:56)
--- NOTE | 2016-08-25 11:29 | PROGRESS NOTE E ---
Progress Note NAME: CHUNG HI : 1950 AGE: 65Y DATE: 08/25/2016 ROOM: 317 SUBJECTIVE: The patient is currently out of bed to the bedside chair. He has participated in therapy today. He is still having a significant amount of output in his NG tube but overall states that he feels much better. The patient denies any nausea, vomiting, diarrhea. No shortness of breath, fevers, chills. The patient has been afebrile. Blood pressure has been in a good range. The patient does not voice any other concerns at this time. REVIEW OF SYSTEMS: The rest of the review of systems is negative. MEDICATIONS: Medications have been reviewed. OBJECTIVE: GENERAL: The patient is a 65-year-old male who is awake, alert, and oriented to person, place, time, and situation. He is verbal, conversational. He does not appear to be in any acute distress. VITAL SIGNS: As follows: Temperature is 97.3, pulse 73, respirations 18, blood pressure is 167/80, oxygen saturation is 96% on 1 L nasal cannula. SKIN: Warm and dry. No rash. He is not diaphoretic. HEENT: Pupils are equal, round and reactive to light and accommodation. Conjunctivae pink. Sclerae nonicteric. No JVP. CARDIOVASCULAR: Heart is regular with no murmur or rub. CHEST: Clear, symmetrical, unlabored. ABDOMEN: Soft, nontender, nondistended. Bowel sounds are present. No palpable organomegaly. BACK: No CVA tenderness or sacral edema. EXTREMITIES: No clubbing, cyanosis, edema. PSYCHIATRIC: Appropriate affect, pleasant mood. DIAGNOSTICS: Lab values are as follows. IMPRESSION AND PLAN: 1. VOLVULUS IN POSTOPERATIVE STATE. Management as per Surgery. 2. ACUTE ON CHRONIC HYPOXEMIC RESPIRATORY FAILURE. Patient is now extubated, doing much better. He is only on 1 L nasal cannula. Hopefully this can be weaned today. Will continue p.r.n. nebulizers. 3. CORONARY ARTERY DISEASE. Continue home medication. 4. PERIPHERAL VASCULAR DISEASE. Will monitor patient. 5. ALCOHOL DEPENDENCY. Will continue to supplement B vitamins and benzodiazepines if needed. 6. CHRONIC OBSTRUCTIVE PULMONARY DISEASE. O2 goal is between 88% and 92%. 7. HYPERTENSION. The patient is actually now hypertensive where he was hypotensive postoperatively. Will cover with IV p.r.n. medications until the patient is taking p.o. DISPOSITION: THE PATIENT IS A FULL CODE. Pending the patient's symptomatology and diagnostic findings, will re-evaluate in the a.m. Time spent on this followup, including assessment/plan, physical examination, patient education, and review of records, is 20 minutes. DICTATING PHYSICIAN: KERRI CELIS NP [id number] PHY#: [id number] ID: [id number] JOB#: [id number] ACCT: [id number] cc: >
--- NOTE | 2016-08-25 16:07 | PDOC PROGRESS REPORT ---
Subjective Progress Note for:: 08/25/16 Subjective:: Patient doing well, sitting in chair. Denies flatus, denies nausea vomiting. Patient has voided since Cruz catheter removed this morning. He has ambulated in the hallways. Physical Exam Vital Signs: Temp Pulse Resp BP Pulse Ox 97.4 F 73 18 166/72 H 95 08/25/16 11:37 08/25/16 11:37 08/25/16 11:37 08/25/16 11:37 08/25/16 11:37 Intake & Output 08/24/16 08/25/16 08/26/16 06:59 06:59 06:59 Intake Total 1988 2595 0 Output Total 300 1145 700 Balance 1688 1450 -700 Weight 69.3 kg General appearance: PRESENT: no acute distress GI/Abdominal exam: PRESENT: other - Midline dressing removed, israel intact. The abdomen is slightly distended. Bowel sounds hypoactive Results Laboratory Results: 08/24/16 03:49 08/25/16 03:47 08/25/16 08/25/16 03:47 03:47 Sodium 134.3 L Potassium 3.7 Chloride 100 Carbon Dioxide 27 Anion Gap 7 BUN 14 Creatinine 0.47 L Est GFR ( Amer) > 60 Est GFR (Non-Af Amer) > 60 Glucose 115 H Calcium 8.6 Magnesium 2.1 Impressions: Abdomen/Pelvis CTA 08/23/16 18:24 IMPRESSION: 1. Status post EVAR without evidence of endoleak. 2. Multiple fluid distended loops of small bowel with air-fluid levels and mesenteric fluid tracking. 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 Chest X-Ray 08/24/16 00:01 IMPRESSION: No acute cardiopulmonary findings. Assessment & Plan - Diagnosis (1) Acute abdomen Is this a current diagnosis for this admission?: YesPlan: Assessment: Patient is postoperative day 2 status post exploratory laparotomy, reduction of small bowel volvulus due to adhesion. Patient doing well, await complete return of bowel function. Plan: 1. Continue ambulation 2. anticipate discontinuation of nasogastric tube 3. Shower
[2016-08-25] MEDS: NORMAL SALINE 1000 ML 1,000 ML with POTASSIUM CHLORIDE 20 MEQ, MAGNESIUM SULFATE 8 MEQ,... IV SCH ×5 (17:06)
[2016-08-25] MEDS: ATORVASTATIN CALCIUM 20 MG TABLET PO SCH (21:09)
[2016-08-26] MEDS: HYDROMORPHONE HCL INJ/PF 2 MG/ML AMPULE IV PRN ×3 (00:34→15:48)
[2016-08-26 04:40] LABS: HEMOGLOBIN 12.8 g/dL (13.5-17.0); HGB HCT DIFFERENCE -0.6; MEAN CORPUSCULAR HEMOGLOBIN 33.3 pg (27.0-33.4); MEAN CORPUSCULAR HGB CONC 32.8 g/dL (32.0-36.0); MEAN CORPUSCULAR VOLUME 102 fl (80-97); RED BLOOD COUNT 3.84 10^6/uL (4.35-5.55); RED CELL DISTRIBUTION WIDTH 13.2 % (11.5-14.0); WHITE BLOOD COUNT 12.4 10^3/uL (4.0-10.5)
[2016-08-26 04:49] LABS: ANION GAP 10 (5-19); BLOOD UREA NITROGEN 10 mg/dL (7-20); CALCIUM 8.9 mg/dL (8.4-10.2); CARBON DIOXIDE 27 mmol/L (22-30); CHLORIDE 95 mmol/L (98-107); CREATININE RESULT 0.49 mg/dL (0.52-1.25); GLUCOSE 95 mg/dL (75-110); POTASSIUM 3.7 mmol/L (3.6-5.0); SODIUM 131.7 mmol/L (137-145)
[2016-08-26 05:40] LABS: ARTERIAL BLOOD BASE EXCESS 3.3 mmol/L; ARTERIAL BLOOD O2 SATURATION 84.9 % (94-98)
--- NOTE | 2016-08-26 05:49 | RADIOLOGY REPORT (SQ) ---
EXAM DESCRIPTION: CHEST SINGLE VIEW COMPLETED DATE/TIME: 08/26/2016 5:27 am REASON FOR STUDY: Low 02 sat COMPARISON: None. EXAM PARAMETERS: NUMBER OF VIEWS: One view. TECHNIQUE: Single frontal radiographic view of the chest acquired. RADIATION DOSE: NA LIMITATIONS: None. FINDINGS: LUNGS AND PLEURA: Mild interstitial markings. Mild bi hilar fullness. MEDIASTINUM AND HILAR STRUCTURES: No masses. Contour normal. HEART AND VASCULAR STRUCTURES: Heart normal in size. Normal vasculature. BONES: No acute findings. HARDWARE: Sternotomy. OTHER: New moderate lucency under the right hemidiaphragm may indicate large intraperitoneal free air or new bowel gas artifact. IMPRESSION: Possible free intra-abdominal air. Urgent general surgery consultation and possible CT recommended. COMMENT: This report was called to [facility] Nurse Mac Vargas at05:34 on 08/26/2016. TECHNICAL DOCUMENTATION: JOB ID: [id number]
[2016-08-26 07:05] LABS: HEMATOCRIT 40.3 % (37.9-51.0); HEMOGLOBIN 13.1 g/dL (13.5-17.0); MEAN CORPUSCULAR HEMOGLOBIN 33.5 pg (27.0-33.4); MEAN CORPUSCULAR HGB CONC 32.6 g/dL (32.0-36.0); MEAN CORPUSCULAR VOLUME 103 fl (80-97); RED BLOOD COUNT 3.92 10^6/uL (4.35-5.55); RED CELL DISTRIBUTION WIDTH 13.2 % (11.5-14.0); WHITE BLOOD COUNT 12.9 10^3/uL (4.0-10.5)
[2016-08-26 07:24] LABS: ANION GAP 11 (5-19); BLOOD UREA NITROGEN 11 mg/dL (7-20); CALCIUM 8.8 mg/dL (8.4-10.2); CARBON DIOXIDE 24 mmol/L (22-30); CHLORIDE 97 mmol/L (98-107); CREATININE RESULT 0.47 mg/dL (0.52-1.25); GLUCOSE 90 mg/dL (75-110); POTASSIUM 3.9 mmol/L (3.6-5.0); SODIUM 131.7 mmol/L (137-145)
[2016-08-26 07:53] LABS: BAND NEUTROPHILS % (MANUAL) 2 % (3-5); BASOPHILS % (MANUAL) 0 % (0-2); EOSINOPHILS % (MANUAL) 1 % (0-6); LYMPHOCYTES % (MANUAL) 5 % (13-45); POLYCHROMASIA SLIGHT; TOTAL CELLS COUNTED 100; TOXIC GRANULATION 1+
--- NOTE | 2016-08-26 09:24 | RADIOLOGY REPORT (SQ) ---
EXAM DESCRIPTION: CTA CHEST COMPLETED DATE/TIME: 08/26/2016 9:00 am REASON FOR STUDY: Hypoxia, dyspnea COMPARISON: Chest x-ray dated 08/26/2016. CT abdomen dated 08/23/2016. TECHNIQUE: CT scan of the chest performed using helical scanning technique with dynamic intravenous contrast injection. Images reviewed with lung, soft tissue and bone windows. Reconstructed coronal and sagittal MPR images reviewed. Additional 3 dimensional post-processing performed to develop Maximal Intensity Projection images (AK P). All images stored on PACS. All CT scanners at this facility use dose modulation, iterative reconstruction, and/or weight based d osing when appropriate to reduce radiation dose to as low as reasonably achievable (ALARA). [facility]: Dose Right [facility]: CareDose [facility]: Dose Right [facility]: Teradose 4D [facility]: Crowdwave CONTRAST TYPE AND DOSE: contrast/concentration: Isovue 370.00 mg/ml; Total Contrast Delivered: 61.0 ml; Total Saline Delivered: 95.0 ml RENAL FUNCTION: BUN 11 creatinine 0.47. RADIATION DOSE: Up-to-date CT equipment and radiation dose reduction techniques were employed. CTDIv ol: 1.9 - 11.2 mGy. DLP: 478 mGy-cm. . LIMITATIONS: None. FINDINGS: LUNGS AND PLEURA: Dense infiltrate in the posterior left lower lobe extending to the hilum . Patchy parenchymal opacities in both lower lobes with tree in bud appearance. Minimal right pleur al effusion. No pneumothorax. AORTA AND GREAT VESSELS: No aneurysm or dissection. HEART: No pericardial effusion. PULMONARY ARTERIES: No emboli visualized in the main pulmonary arteries or the segmental branches. HILAR AND MEDIASTINAL STRUCTURES: No identified masses or abnormal nodes. HARDWARE: Sternotomy wires. UPPER ABDOMEN: Prominent distended bowel loops. Distended bowel, likely colon, interposed between th e liver and diaphragm. There may be a few areas of free intraperitoneal air in the anterior abdomen, incompletely visualized and somewhat difficult to evaluate due to distended bowel. Probable renal c ysts. Limited exam. THYROID AND OTHER SOFT TISSUES: No masses. No adenopathy. BONES: No acute or significant finding. Wedge deformity of a mid thoracic vertebra which appears old . 3D MIPS: Confirm above findings. OTHER: No other significant finding. IMPRESSION: 1. NORMAL CTA OF THE CHEST. NO PULMONARY EMBOLI. 2. DENSE INFILTRATE IN THE POSTERIOR LEFT LOWER LOBE, NOT PRESENT ON THE PRIOR ABDOMINAL CT (08/23/2016 ). MOST LIKELY DUE TO PNEUMONIA. PATCHY OPACITIES IN BOTH LOWER LOBES SECONDARY TO INFECTION/INFLAM MATION. 3. DILATED BOWEL LOOPS, INCOMPLETELY VISUALIZED. THE FINDING ON THE RECENT CHEST X-RAY, POSSIBLE KILO E INTRAPERITONEAL AIR, IS DUE TO COLON INTERPOSED BETWEEN THE LIVER AND DIAPHRAGM. HOWEVER, THERE AR E A FEW SMALL AREAS WHICH ARE SUSPICIOUS FOR FREE INTRAPERITONEAL AIR. INCOMPLETE EVALUATION OF THE ABDOMEN. CT OF THE ABDOMEN AND PELVIS SHOULD BE CONSIDERED FOR MORE COMPLETE EVALUATION IF CLINICALL Y INDICATED. TECHNICAL DOCUMENTATION: JOB ID: [id number] Quality ID # [id number]: Final reports with documentation of one or more dose reduction techniques (e.g., Au tomated exposure control, adjustment of the mA and/or kV according to patient size, use of iterative reconstruction technique) 2010 [employer]- All Rights Reserved
[2016-08-26] MEDS ORDERED: GENTAMICIN SULFATE 0 MG in DEXTROSE 5%-WATER 100 ML IV NR (09:45)
[2016-08-26] MEDS ORDERED: AZTREONAM 1 GM in DEXTROSE 5%-WATER 50 ML IV SCH (10:00)
[2016-08-26] MEDS: LANSOPRAZOLE 15 MG TAB.RAP.DR PO SCH ×2 (11:26→18:12)
[2016-08-26] MEDS: CHOLECALCIFEROL (D3) 1,000 UNIT TABLET PO SCH (11:26)
[2016-08-26] MEDS: ASPIRIN 81 MG TABLET, ENT COATED PO SCH (11:26)
[2016-08-26] MEDS: LEVOTHYROXINE SODIUM 0.1 MG TABLET PO SCH (11:27)
[2016-08-26] MEDS: LEVOTHYROXINE SODIUM 0.025 MG TABLET PO SCH (11:27)
[2016-08-26] MEDS: VENLAFAXINE HCL 75 MG CAP.SR.24H PO SCH ×2 (11:27→18:13)
[2016-08-26] MEDS: RAMIPRIL 5 MG CAPSULE PO SCH (11:28)
[2016-08-26] MEDS: GUAIFENESIN 600 MG TABLET.SA PO SCH ×2 (11:31→21:45)
[2016-08-26] MEDS ORDERED: PIPERACILLIN SODIUM/TAZOBACTAM 4.5 GM in NORMAL SALINE 100 ML IV SCH (12:00)
[2016-08-26] MEDS: CLINDAMYCIN 900 MG/D5W RTU 50 ML IV SCH ×2 (12:47→21:44)
[2016-08-26] MEDS: GENTAMICIN SULFATE 170 MG in DEXTROSE 5%-WATER 100 ML IV SCH ×2 (13:28→21:44)
[2016-08-26] MEDS ORDERED: POTASSI CL 20 MEQ/NS 1L 1,000 ML IV PRN (14:04)
--- NOTE | 2016-08-26 14:49 | PROGRESS NOTE E ---
Progress Note NAME: CHUNG HI : 1950 AGE: 65Y DATE: 08/26/2016 ROOM: 317 SUBJECTIVE: The patient has been seen twice today on rounds. I was initially notified by the surgeon that the patient had decompensated from a respiratory standpoint. I went to the patient's bedside and he was found to be hypoxic, tachypneic with significant work of breathing and the patient was unable to produce two complete sentences and was in distress. Subsequently the patient was placed on a nonrebreather with some improvement in his oxygenation. The patient did have a stat CTA obtained and findings were consistent with a left lower lobe infiltrate which is new in comparison to previous study. The patient also had a white count of 12.4 but no bandemia. The patient blood gas was worsened. His pCO2 was found to be 45.6 with a pO2 of 49 and his oxygen saturation was 85% in spite of being on 35% FIO2. A plane film chest x-ray was suggestive of possible free air. The patient's CTA did also correlate with this however this may be due to his recent operative status. The case has also been discussed with Surgery as well. The patient was added on expanded antibiotic coverage which is complicated given the patient's anaphylactic reaction to penicillin and Levaquin and upon my followup assessment, the patient is more comfortable, still is requiring significant amount of FIO2, however, he is now able to complete sentences and does not have accessory muscle use at this time. REVIEW OF SYSTEMS: The rest of the review of systems is negative. MEDICATIONS: Medications have been reviewed. OBJECTIVE: GENERAL: The patient is a 65-year-old male who is awake, alert. He is oriented to person, place, time, and situation. He is verbal, conversational and has been in acute distress but does appear to be only in mild distress at this time. VITAL SIGNS: As follows: Temperature is 98.0, pulse 80, respirations 22, blood pressure is 173/71, oxygen saturation is 100% on a partial nonrebreather. SKIN: Warm and dry. No rash. He is not diaphoretic. HEENT: Pupils are equal, round and reactive to light and accommodation. Conjunctivae pink. No JVP. CARDIOVASCULAR: Heart is regular with no murmur or rub. CHEST: The patient does have prominent rhonchi noted in his left lung field. Right lung field is diminished, symmetrical, mildly labored. ABDOMEN: Postsurgical with no area of focal tenderness. Bowel sounds are present. BACK: No CVA tenderness or sacral edema. EXTREMITIES: No clubbing, cyanosis, edema, or peripheral signs with embolization. Patient's four extremities are warm and dry. PSYCHIATRIC: Appropriate affect, pleasant mood. DIAGNOSTICS: Lab values are as follows: Hematology on 08/26/2016: WBC 12.9, hemoglobin 13.1, hematocrit 40.3, platelet count 193,000. ABG obtained on 08/26/2016: pH is 7.4 and pCO2 is 45.6, pO2 is 49, bicarb is 28.5. Chemistry obtained on 08/16/2016: Sodium 131, potassium 4.9, chloride 97, carbon dioxide 24, BUN 11, creatinine 0.47, glucose 90, calcium 8.8. IMPRESSION AND PLAN: 1. PNEUMONIA. I have a high suspicion for a ventilator pneumonia. This was not on the patient's previous CT scan. Will obtain sputum specimen. I have expanded antibiotic coverage and will add Mucinex breathing treatments and follow. 2. ACUTE ON CHRONIC HYPOXEMIA RESPIRATORY FAILURE. The patient is now requiring O2. Will attempt to wean this when tolerable and follow. 3. VOLVULUS IN POSTOPERATIVE STATE. Management as per Surgery. 4. CORONARY ARTERY DISEASE. Continue home medication. 5. PERIPHERAL VASCULAR DISEASE. Will continue to monitor. 6. ALCOHOL DEPENDENCY. Will continue to supplement B vitamins and benzodiazepines if needed. 7. CHRONIC OBSTRUCTIVE PULMONARY DISEASE. The patient's O2 goal is between 88% and 92%. 8. HYPERTENSION. Will continue p.r.n. medications if needed. DISPOSITION: THE PATIENT IS A FULL CODE. Pending the patient's symptomatology and diagnostic findings, will re-evaluate as needed. Given the patient's improvement of symptoms, will defer transfer to Intensive Care Unit for now but continue to monitor very closely. Time spent on this followup, including assessment/plan, physical examination, patient education, review of records, family meeting, and specialty collaboration is a total of 60 minutes. DICTATING PHYSICIAN: KERRI CELIS NP [id number] PHY#: [id number] ID: [id number] JOB#: [id number] ACCT: [id number] cc: >
--- NOTE | 2016-08-26 15:44 | PDOC PROGRESS REPORT ---
Subjective Progress Note for:: 08/26/16 - Postop day #3 Subjective:: Patient is without complaints at this time. Physical Exam Vital Signs: Temp Pulse Resp BP Pulse Ox 98.0 F 80 22 H 173/71 H 100 08/26/16 11:49 08/26/16 11:49 08/26/16 11:49 08/26/16 11:49 08/26/16 11:49 Intake & Output 08/25/16 08/26/16 08/27/16 06:59 06:59 06:59 Intake Total 2595 1783 Output Total 1145 1750 Balance 1450 33 General appearance: PRESENT: no acute distress - Patient was hypoxic earlier, with some left lung congestion., cooperative Mouth exam: PRESENT: moist Respiratory exam: PRESENT: crackles - Left lower lobe, rales Cardiovascular exam: PRESENT: RRR GI/Abdominal exam: PRESENT: normal bowel sounds, soft. ABSENT: guarding - Wound is clean, dry, and intact., tenderness Results Laboratory Results: 08/26/16 06:45 08/26/16 06:45 08/26/16 08/26/16 08/26/16 03:50 03:50 05:00 WBC 12.4 H RBC 3.84 L Hgb 12.8 L Hct 39.0 MCV 102 H MCH 33.3 MCHC 32.8 RDW 13.2 Plt Count 187 Seg Neutrophils % Lymphocytes % Monocytes % Eosinophils % Basophils % Absolute Neutrophils Absolute Lymphocytes Absolute Monocytes Absolute Eosinophils Absolute Basophils Carbonic Acid 1.37 H HCO3/H2CO3 Ratio 20:1 ABG pH 7.41 ABG pCO2 45.6 H ABG pO2 49.0 L ABG HCO3 28.5 H ABG O2 Saturation 84.9 L ABG Base Excess 3.3 FiO2 35% Sodium 131.7 L Potassium 3.7 Chloride 95 L Carbon Dioxide 27 Anion Gap 10 BUN 10 Creatinine 0.49 L Est GFR ( Amer) > 60 Est GFR (Non-Af Amer) > 60 Glucose 95 Calcium 8.9 08/26/16 08/26/16 06:45 06:45 WBC 12.9 H RBC 3.92 L Hgb 13.1 L Hct 40.3 MCV 103 H MCH 33.5 H MCHC 32.6 RDW 13.2 Plt Count 193 Seg Neutrophils % Not Reportable Lymphocytes % Not Reportable Monocytes % Not Reportable Eosinophils % Not Reportable Basophils % Not Reportable Absolute Neutrophils Not Reportable Absolute Lymphocytes Not Reportable Absolute Monocytes Not Reportable Absolute Eosinophils Not Reportable Absolute Basophils Not Reportable Carbonic Acid HCO3/H2CO3 Ratio ABG pH ABG pCO2 ABG pO2 ABG HCO3 ABG O2 Saturation ABG Base Excess FiO2 Sodium 131.7 L Potassium 3.9 Chloride 97 L Carbon Dioxide 24 Anion Gap 11 BUN 11 Creatinine 0.47 L Est GFR ( Amer) > 60 Est GFR (Non-Af Amer) > 60 Glucose 90 Calcium 8.8 Impressions: Abdomen/Pelvis CTA 08/23/16 18:24 IMPRESSION: 1. Status post EVAR without evidence of endoleak. 2. Multiple fluid distended loops of small bowel with air-fluid levels and mesenteric fluid tracking. 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 Chest X-Ray 08/26/16 00:00 IMPRESSION: Possible free intra-abdominal air. Urgent general surgery consultation and possible CT recommended. Chest/Abdomen CTA 08/26/16 00:00 IMPRESSION: 1. NORMAL CTA OF THE CHEST. NO PULMONARY EMBOLI. 2. DENSE INFILTRATE IN THE POSTERIOR LEFT LOWER LOBE, NOT PRESENT ON THE PRIOR ABDOMINAL CT (08/23/2016). MOST LIKELY DUE TO PNEUMONIA. PATCHY OPACITIES IN BOTH LOWER LOBES SECONDARY TO INFECTION/INFLAMMATION. 3. DILATED BOWEL LOOPS, INCOMPLETELY VISUALIZED. THE FINDING ON THE RECENT CHEST X-RAY, POSSIBLE FREE INTRAPERITONEAL AIR, IS DUE TO COLON INTERPOSED BETWEEN THE LIVER AND DIAPHRAGM. HOWEVER, THERE ARE A FEW SMALL AREAS WHICH ARE SUSPICIOUS FOR FREE INTRAPERITONEAL AIR. INCOMPLETE EVALUATION OF THE ABDOMEN. CT OF THE ABDOMEN AND PELVIS SHOULD BE CONSIDERED FOR MORE COMPLETE EVALUATION IF CLINICALLY INDICATED. Assessment & Plan - Diagnosis (1) Left lower lobe pneumonia Qualifiers: Pneumonia type: due to unspecified organism Qualified Code(s): J18.1 - Lobar pneumonia, unspecified organism Is this a current diagnosis for this admission?: NoPlan: Antibiotic therapy, pulmonary toilet, oxygen supplementation, incentive spirometry - Plan Summary Plan Summary: Antibiotic therapy, pulmonary toilet, incentive spirometry, and supplementation.
[2016-08-26] MEDS: NORMAL SALINE 1000 ML 1,000 ML with POTASSIUM CHLORIDE 20 MEQ, MAGNESIUM SULFATE 8 MEQ,... IV SCH ×5 (18:12)
[2016-08-26] MEDS: PILOCARPINE HCL 5 MG PO SCH (18:12)
[2016-08-26] MEDS: ATORVASTATIN CALCIUM 20 MG TABLET PO SCH (21:45)
[2016-08-27] MEDS: HYDROMORPHONE HCL INJ/PF 2 MG/ML AMPULE IV PRN (00:36)
[2016-08-27 04:31] LABS: HEMATOCRIT 35.7 % (37.9-51.0); HEMOGLOBIN 11.9 g/dL (13.5-17.0); MEAN CORPUSCULAR HEMOGLOBIN 33.8 pg (27.0-33.4); MEAN CORPUSCULAR HGB CONC 33.4 g/dL (32.0-36.0); MEAN CORPUSCULAR VOLUME 101 fl (80-97); RED BLOOD COUNT 3.53 10^6/uL (4.35-5.55); RED CELL DISTRIBUTION WIDTH 12.7 % (11.5-14.0); WHITE BLOOD COUNT 10.6 10^3/uL (4.0-10.5)
[2016-08-27 04:55] LABS: ANION GAP 10 (5-19); BLOOD UREA NITROGEN 12 mg/dL (7-20); CALCIUM 8.6 mg/dL (8.4-10.2); CARBON DIOXIDE 25 mmol/L (22-30); CHLORIDE 95 mmol/L (98-107); CREATININE RESULT 0.43 mg/dL (0.52-1.25); GLUCOSE 109 mg/dL (75-110); POTASSIUM 3.6 mmol/L (3.6-5.0); SODIUM 129.5 mmol/L (137-145)
[2016-08-27] MEDS: CLINDAMYCIN 900 MG/D5W RTU 50 ML IV SCH ×2 (05:01→15:21)
[2016-08-27] MEDS: GENTAMICIN SULFATE 170 MG in DEXTROSE 5%-WATER 100 ML IV SCH ×2 (05:02→15:31)
--- NOTE | 2016-08-27 10:08 | PROGRESS NOTE E ---
Progress Note NAME: CHUNG HI : 1950 AGE: 65Y DATE: 08/27/2016 ROOM: 317 SUBJECTIVE: The patient is currently out of bed to the bedside chair. His is present at the bedside, active in the patient's care. The patient states that he does feel better in comparison to yesterday, has had some episodes of dyspnea but overall feels much improved. The patient has produced a great amount of sputum overnight. He denies any nausea, vomiting, diarrhea. He has been passing gas fortunately. No dizziness or chest pain. No fevers or chills. The patient has been afebrile. Blood pressure has been in a good range. The patient does not voice any other concerns at this time. REVIEW OF SYSTEMS: The rest of the review of systems is negative. MEDICATIONS: Medications have been reviewed. OBJECTIVE: GENERAL: The patient is a 65-year-old male who is awake, alert, and oriented to person, place, time, and situation. He is verbal, conversational, does not appear to be in any acute distress. VITAL SIGNS: As follows: Temperature is 97.6, pulse 76, respirations 17, blood pressure 146/69, oxygen saturation is 100% on nonrebreather. SKIN: Warm and dry. No rash, not diaphoretic. HEENT: Pupils equal, round, reactive to light and accommodation. Conjunctivae pink. There is no JVP. CARDIOVASCULAR: Heart is regular with no murmur or rub. CHEST: Patient does have rhonchorous breath sounds in left lung field but overall improved in comparison to yesterday, symmetrical, currently unlabored. ABDOMEN: Soft, postsurgical. Bowel sounds are present. BACK: No CVA tenderness or sacral edema. EXTREMITIES: No clubbing, cyanosis, edema. PSYCHIATRIC: Appropriate affect, pleasant mood. DIAGNOSTICS: Lab values are as follows. Hematology obtained on 08/27/2016: WBCs are 10.6, hemoglobin is 11.9, hematocrit is 35.7, platelet count is 182,000. Chemistry obtained on 08/27/2016: Sodium is 129, potassium 3.6, chloride 95, carbon dioxide 25, BUN 12, creatinine 1.3, glucose 109, calcium is 8.6. IMPRESSION AND PLAN: 1. LEFT LOWER LOBE INFILTRATE PNEUMONIA. Have a high suspicion for ventilator-associated pneumonia given that the patient's previous CT scan showed no evidence of this. Have obtained sputum specimen, currently awaiting this. Expanded antibiotic coverage to include Gram-negative as well as anaerobes. Given the patient is improved, will withhold vancomycin for now. Continue Mucinex breathing treatments and pulmonary toilet. 2. ACUTE ON CHRONIC HYPOXEMIC RESPIRATORY FAILURE. The patient is now requiring O2. Will discontinue nonrebreather and transition to nasal cannula in attempt to wean. 3. VOLVULUS AND POSTOPERATIVE STATE. Management as per Surgery, appears improved, is passing gas. 4. CORONARY ARTERY DISEASE. Will continue home medication. 5. PERIPHERAL VASCULAR DISEASE. Will continue to monitor. 6. ALCOHOL DEPENDENCY. Will continue to supplement B vitamins and benzodiazepines as needed. 7. CHRONIC OBSTRUCTIVE PULMONARY DISEASE. The patient's O2 goal is between 88% and 92%. 8. HYPERTENSION. Will continue p.r.n. medications. DISPOSITION: THE PATIENT IS A FULL CODE. Pending the patient's symptomatology and diagnostic findings, will re-evaluate in the a.m. Time spent on this followup, including assessment/plan, physical examination, patient education, family meeting and specialty collaboration, is 30 minutes. DICTATING PHYSICIAN: KERRI CELIS NP [id number] PHY#: [id number] ID: [id number] JOB#: [id number] ACCT: [id number] cc: >
[2016-08-27] MEDS: TRAMADOL HCL 50 MG TABLET PO PRN ×3 (10:16→21:36)
[2016-08-27] MEDS: ASPIRIN 81 MG TABLET, ENT COATED PO SCH (10:21)
[2016-08-27] MEDS: CHOLECALCIFEROL (D3) 1,000 UNIT TABLET PO SCH (10:21)
[2016-08-27] MEDS: RAMIPRIL 5 MG CAPSULE PO SCH (10:21)
[2016-08-27] MEDS: LANSOPRAZOLE 15 MG TAB.RAP.DR PO SCH ×2 (10:22→18:16)
[2016-08-27] MEDS: GUAIFENESIN 600 MG TABLET.SA PO SCH ×2 (10:22→21:32)
[2016-08-27] MEDS: FOLIC ACID 1 MG TABLET PO SCH (10:22)
[2016-08-27] MEDS: LEVOTHYROXINE SODIUM 0.025 MG TABLET PO SCH (10:23)
[2016-08-27] MEDS: PILOCARPINE HCL 5 MG PO SCH ×3 (10:23→18:16)
[2016-08-27] MEDS: VENLAFAXINE HCL 75 MG CAP.SR.24H PO SCH ×2 (10:23→18:17)
[2016-08-27] MEDS: LEVOTHYROXINE SODIUM 0.1 MG TABLET PO SCH (10:23)
[2016-08-27 14:07] LABS: CREATININE RESULT 0.42 mg/dL (0.52-1.25)
[2016-08-27 14:13] LABS: GENTAMICIN-TROUGH 1.4 ug/mL (<2.0)
[2016-08-27] MEDS: HEPARIN SOD (PORCINE) 5,000 UNIT/ML 1 ML SYRINGE SUBCUT SCH ×2 (15:20→21:37)
[2016-08-27] MEDS ORDERED: ERTAPENEM SODIUM INJ 1 GM VIAL IV SCH (18:00)
[2016-08-27] MEDS ORDERED: AZITHROMYCIN INJ 500 MG VIAL IV SCH (18:00)
[2016-08-27] MEDS ORDERED: AZITHROMYCIN 500 MG in DEXTROSE 5%-WATER 250 ML IV ONE (19:00)
[2016-08-27] MEDS: ATORVASTATIN CALCIUM 20 MG TABLET PO SCH (21:36)
--- NOTE | 2016-08-27 22:14 | PDOC PROGRESS REPORT ---
Subjective Subjective:: Patient is without complaints Physical Exam Vital Signs: Temp Pulse Resp BP Pulse Ox 98.5 F 84 22 H 156/76 H 100 08/27/16 20:10 08/27/16 20:10 08/27/16 20:10 08/27/16 20:10 08/27/16 20:10 Intake & Output 08/26/16 08/27/16 08/28/16 06:59 06:59 06:59 Intake Total 1783 3618 1757 Output Total 1750 1350 1150 Balance 33 2268 607 GI/Abdominal exam: PRESENT: normal bowel sounds - Gas and stool noted in the colostomy. Stoma looks healthy., soft. ABSENT: rebound, tenderness Results Laboratory Results: 08/27/16 03:59 08/27/16 13:35 08/27/16 08/27/16 08/27/16 03:59 03:59 13:35 WBC 10.6 H RBC 3.53 L Hgb 11.9 L Hct 35.7 L MCV 101 H MCH 33.8 H MCHC 33.4 RDW 12.7 Plt Count 183 Sodium 129.5 L Potassium 3.6 Chloride 95 L Carbon Dioxide 25 Anion Gap 10 BUN 12 Creatinine 0.43 L 0.42 L Est GFR ( Amer) > 60 > 60 Est GFR (Non-Af Amer) > 60 > 60 Glucose 109 Calcium 8.6 Impressions: Abdomen/Pelvis CTA 08/23/16 18:24 IMPRESSION: 1. Status post EVAR without evidence of endoleak. 2. Multiple fluid distended loops of small bowel with air-fluid levels and mesenteric fluid tracking. 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 Chest X-Ray 08/26/16 00:00 IMPRESSION: Possible free intra-abdominal air. Urgent general surgery consultation and possible CT recommended. Chest/Abdomen CTA 08/26/16 00:00 IMPRESSION: 1. NORMAL CTA OF THE CHEST. NO PULMONARY EMBOLI. 2. DENSE INFILTRATE IN THE POSTERIOR LEFT LOWER LOBE, NOT PRESENT ON THE PRIOR ABDOMINAL CT (08/23/2016). MOST LIKELY DUE TO PNEUMONIA. PATCHY OPACITIES IN BOTH LOWER LOBES SECONDARY TO INFECTION/INFLAMMATION. 3. DILATED BOWEL LOOPS, INCOMPLETELY VISUALIZED. THE FINDING ON THE RECENT CHEST X-RAY, POSSIBLE FREE INTRAPERITONEAL AIR, IS DUE TO COLON INTERPOSED BETWEEN THE LIVER AND DIAPHRAGM. HOWEVER, THERE ARE A FEW SMALL AREAS WHICH ARE SUSPICIOUS FOR FREE INTRAPERITONEAL AIR. INCOMPLETE EVALUATION OF THE ABDOMEN. CT OF THE ABDOMEN AND PELVIS SHOULD BE CONSIDERED FOR MORE COMPLETE EVALUATION IF CLINICALLY INDICATED. Assessment & Plan - Diagnosis (1) Left lower lobe pneumonia Qualifiers: Pneumonia type: due to unspecified organism Qualified Code(s): J18.1 - Lobar pneumonia, unspecified organism Is this a current diagnosis for this admission?: No - Plan Summary Plan Summary: Diet advanced.
[2016-08-27] MEDS: ERTAPENEM SODIUM 1 GM in NORMAL SALINE 50 ML IV SCH (22:35)
[2016-08-28 05:13] LABS: HEMATOCRIT 35.4 % (37.9-51.0); HGB HCT DIFFERENCE 0.6; MEAN CORPUSCULAR HEMOGLOBIN 33.5 pg (27.0-33.4); MEAN CORPUSCULAR HGB CONC 33.8 g/dL (32.0-36.0); MEAN CORPUSCULAR VOLUME 99 fl (80-97); RED BLOOD COUNT 3.58 10^6/uL (4.35-5.55); RED CELL DISTRIBUTION WIDTH 12.7 % (11.5-14.0); WHITE BLOOD COUNT 8.6 10^3/uL (4.0-10.5)
[2016-08-28] MEDS: HEPARIN SOD (PORCINE) 5,000 UNIT/ML 1 ML SYRINGE SUBCUT SCH ×3 (05:20→21:17)
[2016-08-28 05:33] LABS: ANION GAP 10 (5-19); BLOOD UREA NITROGEN 10 mg/dL (7-20); CALCIUM 8.5 mg/dL (8.4-10.2); CARBON DIOXIDE 27 mmol/L (22-30); CHLORIDE 90 mmol/L (98-107); CREATININE RESULT 0.44 mg/dL (0.52-1.25); GLUCOSE 97 mg/dL (75-110); MAGNESIUM 1.7 mg/dL (1.6-2.3); POTASSIUM 3.2 mmol/L (3.6-5.0); SODIUM 127.4 mmol/L (137-145)
[2016-08-28] MEDS: RAMIPRIL 5 MG CAPSULE PO SCH (08:39)
--- NOTE | 2016-08-28 09:20 | ST Inp Modified Barium Swallow ---
Medical Diagnosis - Medical Diagnoses Medical Diagnosis Description & ICD-10 Code(s): history of throat CA/aspiration PNA - ICD-10 Tx Diagnosis Coding (1) Dysphagia, oropharyngeal phase ICD-10 Code(s): R13.12 - DYSPHAGIA, OROPHARYNGEAL PHASE (2) Dysphagia, pharyngeal phase ICD-10 Code(s): R13.13 - DYSPHAGIA, PHARYNGEAL PHASE (3) Dysphagia, pharyngoesophageal phase ICD-10 Code(s): R13.14 - DYSPHAGIA, PHARYNGOESOPHAGEAL PHASE ST Inpatient MBS - General Date: 08/28/16 Date of Onset: 08/23/16 - History History Obtained From: Patient - per EMR -: Medical - Per EMR; bowel obstruction, left lower lobe PNA, mid volvulus, dysphagia with scar tissue and ENT to evaluate for surgery, CAD. chest CTA shows left lower lobe PNA, opacities in both lower lobes secondary to infection/ inflammation. Pt on vent for surgery 08/24/16 00:11 to 08/24/16 8:20. pt currently on clear liquid diet per surgions request. ST only to provide clear liquids per hospitalist. PMHx: peripheral artirial disease, lung CA, abdonimal aortic aneurysm, HTN, GERD, anxiety, tobacco dependency, alcohol dependency. Per pt's pt had throat CA with surgery and radiation in 2003. Recent diagnosis of lung CA. and pt report no history of swallow studies completed. State treating ENT to complete esophgeal "stretching" soon. MBSS completed due to s/ sx of aspiration at bedside, history of throat CA with surgery and radiation. Medications: Medications Reviewed Allergies: Refer to medical record - Subjective Current Nutritional Means: PO Current PO Diet: Soft Current Symptoms: Weight loss, Poor intake, Coughing, Wet/gurgly voice, Pneumonia, Aspiration, c/o Globus sensation Pain: 0/5 - Objective Assessment: Upright, Left Lateral - Food Trials Food Trials Used: Thin liquids, Honey-thickened liquids, [place] thick liquids, Pureed The Patient: Was Able to Self Feed - Assessment Labial Function: Within Functional Limits Lingual Function: Within Functional Limits Mandibular Function: Within Functional Limits Velo-Pharyngeal Function: Unremarkable Laryngeal Function: Weak Cough - Pharyngeal Stage Initiation of Pharyngeal Stage: Delayed Reflex Delay Time (seconds): 1 Decreased Laryngeal Elevation: Yes - moderate-severe Reduced Velo-Pharyngeal Closure: no Reduced Pressure Generation: Yes - severe Reduced Tongue Base Retraction: Yes - moderate-severe Pre-Swallowing Pooling in Valleculae: Mild - on thin Pre-Swallowing Pooling in Pyriforms: Mild - on thin Reduced Thyro-Hyiod Approximation: Yes - severe Reduced Epiglottic Excursion: Yes - severe Reduced Pharyngeal Peristalsis: Yes - moderate Post Swallow Residuals in Valleculae: Moderate - on nectar, Significant - on honey and puree Post Swallow Residuals in Pyriforms: Mild - on thin, Significant - on honey and puree - Esophageal Stage Cricophageal Function: Impaired - Impression/Summary Laryngeal Penetration: Yes - on all consistencies, Flash, Deep, Delayed cough, during swallow, after swallow Tracheal Aspiration: yes, deep, delayed cough, during swallow, after swallow Effective Clearing: partial clearing Effective Compensatory Strategies: chin tuck - partially effective-penetration observed, throat clear & reswallow - partial clearance Ineffective Compensatory Strategies: hard swallow Patient Presents With: Pharyngeal stage dysph., Oral-Pharyngeal dysph., Esophageal stage dysph. Risk of Aspiration: Severe Risk of Nutritional Compromise: Severe - Recommendations NPO: yes Dysphagia Therapy with EDUCATION ASSISTANT: Yes, Inpatient, Outpatient, Discharge Other Recommendations: 1) DIET: Pt is at high risk of aspiration on any diet. Pt observed to aspirate all consistencies throughout the study. Due to risk of aspiration ST recommends NPO with alternate means nutrition/hydration. ST spoke with family regarding recommendations, family continues to decline NPO with alternate means. ST educated pt and pt's family regarding dysphagia, aspiration , aspiration PNA, oral care, and swallowing exercises. Pt and pt's family verbalized understanding of risks of aspiration and wish to continue PO diet. Per family's wishes for continued PO intake, ST provided compensatory strategies to complete during meals to aid in airway protection and reduce aspiration, however pt still at high risk of aspiration with use of strategies as strategies not consistenly effective during MBSS. 2) TREATMENT: ST recommends ST treat x1 this week, x2 starting next week for pharyngeal strengthening. Prognosis is guarded as pt is several years post throat surgery and radiation. Family in agreement with beginning acute care dysphagia treatment at this time. SUMMARY: Pt presents with a profound dysphagia characterized by severely reduced hyolaryngeal elevation, pharyngeal peristalsis , impaired epiglottic inversion, reduced base of tongue, limited UES opening resulting in aspiration during and after the swallow. Attempted to clear airway with throat clear and reswallow with all PO trials, partially effective. Chin tuck observed to aid in airway protection however penetration still observed throughout study. Pt was observed to take x2 swallow of thin by spoon with no observed aspiration, however change in vocal quality heard, possible microaspiration. Cup sip of thin observed to be aspirated during the swallow. [place] by spoon aspirated after the swallow due to residuals. Honey by spoon aspirated after the swallow. Pt observed to clear throat, unable to produce strong cough, which partially cleared aspirated honey consistency. Aspiration of pudding after the swallow due to increased residuals. Aspiration of mixed residuals observed throughout study. Soft solids not attempted due to severity of the swallow and risk of aspiration. - Time Total Time: 30 Total Timed Minutes: 0 ST F.L. Impairment Category - Rationale Based On Rationale Based On: Clin Find., Obj Measures - Swallowing Current G8996: CM 80-99% Impaired Goal G8997: CL 60-79% Impaired
--- NOTE | 2016-08-28 09:52 | RADIOLOGY REPORT (SQ) ---
EXAM DESCRIPTION: CHEST PA/LAT COMPLETED DATE/TIME: 08/28/2016 9:17 am REASON FOR STUDY: FU infiltrate COMPARISON: October 2011 EXAM PARAMETERS: NUMBER OF VIEWS: two views TECHNIQUE: Digital Frontal and Lateral radiographic views of the chest acquired. RADIATION DOSE: NA LIMITATIONS: none FINDINGS: LUNGS AND PLEURA: No opacities, masses or pneumothorax. No pleural effusion. Chronic appe aring changes are identified. MEDIASTINUM AND HILAR STRUCTURES: No masses or contour abnormalities. HEART AND VASCULAR STRUCTURES: Heart normal size. No evidence for failure. BONES: No acute findings. HARDWARE: Patient is status post median sternotomy. OTHER: No other significant finding. IMPRESSION: NO SIGNIFICANT RADIOGRAPHIC FINDING IN THE CHEST. TECHNICAL DOCUMENTATION: JOB ID: [id number] [employer]- All Rights Reserved
[2016-08-28] MEDS: PILOCARPINE HCL 5 MG PO SCH ×3 (09:58→17:57)
[2016-08-28] MEDS: LEVOTHYROXINE SODIUM 0.025 MG TABLET PO SCH (09:59)
[2016-08-28] MEDS: ASPIRIN 81 MG TABLET, ENT COATED PO SCH (09:59)
[2016-08-28] MEDS: FOLIC ACID 1 MG TABLET PO SCH (09:59)
[2016-08-28] MEDS: GUAIFENESIN 600 MG TABLET.SA PO SCH ×2 (09:59→21:18)
[2016-08-28] MEDS: LANSOPRAZOLE 15 MG TAB.RAP.DR PO SCH ×2 (09:59→17:56)
[2016-08-28] MEDS: LEVOTHYROXINE SODIUM 0.1 MG TABLET PO SCH (09:59)
[2016-08-28] MEDS: VENLAFAXINE HCL 75 MG CAP.SR.24H PO SCH ×2 (09:59→17:56)
[2016-08-28] MEDS: CHOLECALCIFEROL (D3) 1,000 UNIT TABLET PO SCH (10:00)
--- NOTE | 2016-08-28 12:38 | PROGRESS NOTE E ---
Progress Note NAME: CHUNG HI : 1950 AGE: 65Y DATE: 08/28/2016 ROOM: 317 SUBJECTIVE: The patient was seen earlier today on rounds. The patient states that he feels much better today. He is now on nasal cannula. The patient denies any nausea, vomiting, diarrhea. No shortness of breath, dizziness, chest pain. No fevers or chills. The patient has been afebrile, blood pressure has been in a good range, and the patient does not voice any other concerns at this time. REVIEW OF SYSTEMS: The rest of the review of systems is negative. MEDICATIONS: Medications have been reviewed. OBJECTIVE: GENERAL: The patient is a 65-year-old male who is awake, alert, and oriented to person, place, time, and situation. He is verbal, conversational, does not appear to be in any acute distress. VITAL SIGNS: As follows: Temperature is 97.8, pulse 70, respirations 18, blood pressure 154/73, oxygen saturation is 93% on 1 L nasal cannula. SKIN: Warm and dry. No rash, not diaphoretic. HEENT: Pupils equal, round, reactive to light and accommodation. Conjunctivae pink. No JVP. CARDIOVASCULAR: Heart is regular with no murmur or rub. CHEST: Patient does have rhonchorous breath sounds all throughout left lung field. ABDOMEN: Soft, nontender, nondistended. BACK: No CVA tenderness or sacral edema. EXTREMITIES: No clubbing, cyanosis, edema. PSYCHIATRIC: Appropriate affect, pleasant mood. DIAGNOSTICS: Lab values are as follows. Hematology obtained on 08/28/2016: WBCs are 8.6, hemoglobin is 12, hematocrit is 35.4, platelet count is 222,000. Chemistry obtained on 08/28/2016: Sodium is 127, potassium is 3.2, chloride is 90, carbon dioxide 27, BUN 10, creatinine is 0.44, glucose 97, calcium is 8.5, magnesium is 1.7. IMPRESSION AND PLAN: 1. H. INFLUENZA A PNEUMONIA. Have a high suspicion for ventilator-associated pneumonia. Will continue the patient's coverage and follow. 2. ACUTE ON CHRONIC HYPOXEMIC RESPIRATORY FAILURE. Have turned off the patient's O2. Will repeat his saturations on room air, then ambulate on room air and follow. 3. VOLVULUS, STATUS POST OPERATIVE REPAIR. Management is per Surgery. It appears that the patient is passing a good amount of gas. 4. CORONARY ARTERY DISEASE. Will continue home medication. 5. PERIPHERAL VASCULAR DISEASE. Will continue to monitor. 6. ALCOHOL DEPENDENCY. Will continue to supplement B vitamins. 7. CHRONIC OBSTRUCTIVE PULMONARY DISEASE. Will maintain saturations between 88% and 92%. 8. HYPERTENSION. Will continue home medications. 9. ASPIRATION PER MODIFIED. Patient does have an appointment scheduled with his ENT in [place] for a "stretching procedure" prepharynx. The patient would like to have this procedure done and then have the swallow study repeated to see if there is any benefit. However, have discussed the possibility of aspiration including associated with this. The patient and family are aware of the consequences of this, especially recurrent pneumonias; however, have elected to proceed with the patient's own comfort and satiety. Therefore, they do agree to DNR/DNI STATUS. Time spent on this followup, including assessment/plan, physical examination, patient education, and a family meeting, is 35 minutes. DICTATING PHYSICIAN: KERRI CELIS NP [id number] PHY#: [id number] ID: [id number] JOB#: [id number] ACCT: [id number] cc: >
[2016-08-28] MEDS: POTASSI CL 20 MEQ/50 ML RIDER 50 ML IV SCH ×2 (12:54→14:22)
--- NOTE | 2016-08-28 13:33 | RADIOLOGY REPORT (SQ) ---
EXAM DESCRIPTION: ALICIA SWALLOW COMPLETED DATE/TIME: 08/28/2016 9:17 am REASON FOR STUDY: history of throat CA/aspiration PNA J 69.0 dysphagia unspecified, R 13.10. Food in pharynx causing other injury, sequela T17.228 S COMPARISON: None. TECHNIQUE: Videofluoroscopic swallowing examination was performed in conjunction with speech patholo gy. Videofluoroscopic imaging was obtained and reviewed and these are the findings: RADIATION DOSE: TOTAL FLUOROSCOPY TIME: 2 MINUTES 28 SECONDS 1 fluoroscopy images saved to PACS. LIMITATIONS: None FINDINGS: The patient was brought into the fluoro room and placed upright on a modified barium swall ow chair. The patient was then given thin, nectar, honey, and purees consistencies mixed with barium to swallow under live fluoroscopic video guidance. According to the Speech Pathologist there was la ryngeal penetration and tracheal aspiration with thin, nectar, and honey consistencies. Tracheal asp iration is also noted with post swallow residuals following multiple consistencies. Purees was swall owed without mery aspiration however, aspiration is noted of post swallow residual material. Mild o ral and pharyngeal phase delay noted. Mild to moderate post swallow residuals is noted in the vallec blessing and piriform sinuses following all consistencies. Please see speech pathology report for further details and recommendations. IMPRESSION: LARYNGEAL PENETRATION AND TRACHEAL ASPIRATION WITH MULTIPLE CONSISTENCIES ABOVE.OBIE Rahman SEE SPEECH PATHOLOGIST REPORT FOR OTHER FINDINGS AND RECOMMENDATIONS. COMMENT: Quality ID [id number]: Final reports for procedures using fluoroscopy that document radiation exp osure indices, or exposure time and number of fluorographic images (if radiation exposure indices are not available) TECHNICAL DOCUMENTATION: JOB ID: [id number] [employer]- All Rights Reserved
--- NOTE | 2016-08-28 14:53 | PDOC PROGRESS REPORT ---
Subjective Progress Note for:: 08/28/16 Subjective:: Feels well. Tolerating a diet well. No respiratory complaints. Patient is at high aspiration risk as determined by speech pathology however patient adamantly declines feeding tube placement. He is status post neck surgery in the past and he is pending follow-up with his surgeon. He does agree to otherwise follow speech pathology exercises. Physical Exam Vital Signs: Temp Pulse Resp BP Pulse Ox 98.2 F 85 20 134/78 H 91 L 08/28/16 12:26 08/28/16 12:26 08/28/16 12:26 08/28/16 12:26 08/28/16 12:26 Intake & Output 08/27/16 08/28/16 08/29/16 06:59 06:59 06:59 Intake Total 3618 2669 458 Output Total 1350 2275 300 Balance 2268 394 158 General appearance: PRESENT: no acute distress, cooperative Respiratory exam: PRESENT: clear to auscultation landon Cardiovascular exam: PRESENT: RRR GI/Abdominal exam: PRESENT: other - Soft, nondistended, nontender to palpation. Clean dry and intact. Results Laboratory Results: 08/28/16 04:47 08/28/16 04:47 08/28/16 08/28/16 04:47 04:47 WBC 8.6 RBC 3.58 L Hgb 12.0 L Hct 35.4 L MCV 99 H MCH 33.5 H MCHC 33.8 RDW 12.7 Plt Count 222 Sodium 127.4 L Potassium 3.2 L Chloride 90 L Carbon Dioxide 27 Anion Gap 10 BUN 10 Creatinine 0.44 L Est GFR ( Amer) > 60 Est GFR (Non-Af Amer) > 60 Glucose 97 Calcium 8.5 Magnesium 1.7 08/26/16 11:30 Sputum Gram Stain - Final 08/26/16 11:30 Sputum Sputum Culture - Final Haemophilus Influenzae Yeast, Not Raquel Albicans Normal Kami Absent Impressions: Abdomen/Pelvis CTA 08/23/16 18:24 IMPRESSION: 1. Status post EVAR without evidence of endoleak. 2. Multiple fluid distended loops of small bowel with air-fluid levels and mesenteric fluid tracking. 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 Chest/Abdomen CTA 08/26/16 00:00 IMPRESSION: 1. NORMAL CTA OF THE CHEST. NO PULMONARY EMBOLI. 2. DENSE INFILTRATE IN THE POSTERIOR LEFT LOWER LOBE, NOT PRESENT ON THE PRIOR ABDOMINAL CT (08/23/2016). MOST LIKELY DUE TO PNEUMONIA. PATCHY OPACITIES IN BOTH LOWER LOBES SECONDARY TO INFECTION/INFLAMMATION. 3. DILATED BOWEL LOOPS, INCOMPLETELY VISUALIZED. THE FINDING ON THE RECENT CHEST X-RAY, POSSIBLE FREE INTRAPERITONEAL AIR, IS DUE TO COLON INTERPOSED BETWEEN THE LIVER AND DIAPHRAGM. HOWEVER, THERE ARE A FEW SMALL AREAS WHICH ARE SUSPICIOUS FOR FREE INTRAPERITONEAL AIR. INCOMPLETE EVALUATION OF THE ABDOMEN. CT OF THE ABDOMEN AND PELVIS SHOULD BE CONSIDERED FOR MORE COMPLETE EVALUATION IF CLINICALLY INDICATED. Modified Barium Swallow 08/28/16 00:00 IMPRESSION: LARYNGEAL PENETRATION AND TRACHEAL ASPIRATION WITH MULTIPLE CONSISTENCIES ABOVE.PLEASE SEE SPEECH PATHOLOGIST REPORT FOR OTHER FINDINGS AND RECOMMENDATIONS. Chest X-Ray 08/28/16 06:00 IMPRESSION: NO SIGNIFICANT RADIOGRAPHIC FINDING IN THE CHEST. Assessment & Plan - Diagnosis (1) Volvulus Is this a current diagnosis for this admission?: YesPlan: Small bowel volvulus status post surgical exploration with lysis of adhesions and multiple ventral hernia repairs. Patient doing well from his surgery. Solid diet begun since patient refuses feeding tube despite speech pathology recommendation due to aspiration risk. Will observe through the day today probably discharge patient home tomorrow if he has no further problems and no respiratory complaints.
[2016-08-28] MEDS ORDERED: AZITHROMYCIN 500 MG in DEXTROSE 5%-WATER 250 ML IV SCH (18:00)
[2016-08-28] MEDS: ATORVASTATIN CALCIUM 20 MG TABLET PO SCH (21:17)
[2016-08-28] MEDS: ERTAPENEM SODIUM 1 GM in NORMAL SALINE 50 ML IV SCH (21:18)
[2016-08-29] MEDS: HEPARIN SOD (PORCINE) 5,000 UNIT/ML 1 ML SYRINGE SUBCUT SCH (05:34)
[2016-08-29] MEDS: RAMIPRIL 5 MG CAPSULE PO SCH (08:57)
[2016-08-29 10:49] VITALS: BP 107/65
--- NOTE | 2016-08-29 12:44 | DISCHARGE SUMMARY E ---
Discharge Summary NAME: CHUNG HI : 1950 AGE: 65Y ADMITTED: 08/23/2016 DISCHARGED: 08/29/2016 FINAL DIAGNOSIS: Small bowel obstruction due to adhesions. PROCEDURE DONE: Exploratory laparotomy, extensive lysis of adhesions, reduction of midgut volvulus, and full repair of multiple small ventral incisional hernias primarily, done 08/23/2016. HOSPITAL COURSE: Postoperative patient did well and tolerated soft diet today and pain is tolerable. Patient is anxious to go home today. He will be discharged today on p.o. antibiotics for his pneumonia. He will be followed up in the Surgical Clinic in about a week for removal of [place]. DISCHARGE DIAGNOSES: 1. Intraabdominal adhesions with midgut volvulus. 2. Small multiple ventral incisional hernias. 3. Pneumonia. Patient will also be followed up by Medicine for his pneumonia. DICTATING PHYSICIAN: PEREZ FAGAN M.D. [id number] PHY#: [id number] ID: [id number] JOB#: [id number] ACCT: [id number] cc:PEREZ FAGAN M.D. [facility],
--- NOTE | 2016-08-29 16:54 | DISCHARGE SUMMARY E ---
Discharge Summary NAME: CHUNG HI : 1950 AGE: 65Y ADMITTED: 08/23/2016 DISCHARGED: 08/29/2016 FINAL DIAGNOSIS: Small bowel obstruction due to adhesions. HOSPITAL COURSE: Patient underwent exploratory laparotomy with lysis of adhesions on the day of admission. Postoperatively he gradually improved and tolerated soft diet on the day of discharge. There is a question of aspiration pneumonia and hospitalist will give him his antibiotic p.o. and also for Percocet 1 every 4 hours as needed p.r.n. for pain. Patient will be followed up in the Surgical Clinic in about a week. He was advised not to do any lifting more than 10 pounds until seen in the clinic. He can have soft diet. DICTATING PHYSICIAN: PEREZ FAGAN M.D. [id number] PHY#: [id number] ID: [id number] JOB#: [id number] ACCT: [id number] cc:PEREZ FAGAN M.D. [facility],
--- NOTE | 2016-08-29 16:58 | PROGRESS NOTE E ---
Progress Note NAME: CHUNG HI : 1950 AGE: 65Y DATE: 08/29/2016 ROOM: 317 SUBJECTIVE: The patient is out of bed to the bedside chair. He has done much better today. The patient was able to ambulate without requiring O2 and was not hypoxic or dyspneic. The patient has been afebrile. His blood pressures have been in a good range. The patient denies any nausea, vomiting, or diarrhea. No shortness of breath, dizziness, or chest pain. No fever or chills. The patient has been afebrile. His blood pressures have been in a good range. The patient does not voice any other concerns at this time. REVIEW OF SYSTEMS: Rest of the review of systems negative. MEDICATIONS: Have been reviewed. OBJECTIVE: GENERAL: The patient is a 65-year-old male who is awake, alert, and oriented to person, place, time, and situation. He is verbal, conversational, ambulatory, and does not appear to be in any acute distress. VITAL SIGNS: Temperature 98.8, pulse 89, respirations 18, blood pressure 115/78, oxygen saturation is 93% on room air. SKIN: Warm and dry. No rash. Not diaphoretic. HEENT: Pupils equal, round, reactive to light and accommodation. Conjunctivae are pink. No JVP. CARDIOVASCULAR: Heart is regular with no murmur or rub. CHEST: Rhonchus breath sounds in the left lung field, symmetrical, unlabored. ABDOMEN: Soft, nontender, nondistended. BACK: No CVA tenderness or sacral edema. EXTREMITIES: No clubbing, cyanosis, or edema. DIAGNOSTICS: Lab values are as follows: Hematology obtained on 08/28/2016: WBCs are 8.6, hemoglobin is 12.0, hematocrit is 35.4, platelet count is 222,000. Chemistry obtained on 08/28/2016: Sodium is 127, potassium is 3.2, chloride is 90, carbon dioxide 27, BUN 10, creatinine is 0.44, glucose 97, calcium is 8.5, magnesium is 1.7. IMPRESSION AND PLAN: 1. HYPOKALEMIA. This has been supplemented and repleted. 2. H. INFLUENZA A PNEUMONIA. Will continue current coverage. Do have a high suspicion for ventilator-associated pneumonia. Will continue the patient's coverage and follow. 3. [id number] HYPOXEMIC RESPIRATORY FAILURE. Patient is no longer requiring O2. This is resolved. 4. VOLVULUS, STATUS POST OPERATIVE REPAIR. Management as per Surgery. It appears the patient is passing a good amount of gas. 5. CORONARY ARTERY DISEASE. Will continue the patient's home medication. 6. PERIPHERAL VASCULAR DISEASE. Will continue to monitor. 7. ALCOHOL DEPENDENCY. Will continue supplement B vitamins. 8. CHRONIC OBSTRUCTIVE PULMONARY DISEASE. Will maintain saturations between 88% and 92%. 9. HYPERTENSION. Will continue home medications. 10. ASPIRATION PER MODIFIED. The patient does have an outpatient appointment with ENT in [place] for a "stretching procedure" prepharynx. The patient would like to have this procedure done and then have a repeat swallow evaluation to see if there is any benefit. However, he is aware that every piece of food that he eats could possibly cause his in that he is chronically aspirating. The family and patient are aware of the consequences, especially those of recurrent pneumonias. However, they have elected to proceed to eat for the patient's own comfort and satiety. Therefore, they do agree to DNR/DNI status. DISPOSITION: The patient is a DO NOT RESUSCITATE/DO NOT INTUBATE. Pending patient's symptomatology and diagnostic findings, will reevaluate as needed. The patient has been cleared for discharge from a medical perspective. Time spent on this followup including assessment, plan, physical examination, patient education, family meeting, and specialty collaboration is 25 minutes. DICTATING PHYSICIAN: KERRI CELIS NP [id number] PHY#: [id number] ID: [id number] JOB#: [id number] ACCT: [id number] cc: >
== END 2016-08-29 11:39 | disposition home or self-care (01) | DRG 335 ==
LOC: ER 17:43 → EH 21:11 → ICU 23:40 → 3W 08-24 12:50
PROVIDERS: ATTEND Surgery
PROC: 0WQF0ZZ Repair Abdominal Wall, Open Approach (ICD-10-PCS; 2016-08-23)
PROC: 0DN80ZZ Release Small Intestine, Open Approach (ICD-10-PCS; principal; 2016-08-23 21:45)
DX: K56.5 Intestinal adhesions [bands] with obstruction (postinfection) (principal); J96.21 Acute and chronic respiratory failure with hypoxia; J69.0 Pneumonitis due to inhalation of food and vomit; J14 Pneumonia due to Hemophilus influenzae; J44.0 Chronic obstructive pulmonary disease with (acute) lower respiratory infection; E87.6 Hypokalemia; R13.10 Dysphagia, unspecified; I73.9 Peripheral vascular disease, unspecified; E03.9 Hypothyroidism, unspecified; E78.00 Pure hypercholesterolemia, unspecified; I10 Essential (primary) hypertension; K21.9 Gastro-esophageal reflux disease without esophagitis; F41.9 Anxiety disorder, unspecified; Z79.82 Long term (current) use of aspirin; Z79.899 Other long term (current) drug therapy; Z95.1 Presence of aortocoronary bypass graft; Z85.89 Personal history of malignant neoplasm of other organs and systems; F17.210 Nicotine dependence, cigarettes, uncomplicated; F10.20 Alcohol dependence, uncomplicated; Z88.0 Allergy status to penicillin; Z88.8 Allergy status to other drugs, medicaments and biological substances
CPT/HCPCS: 00790; 36415; 36600; 71010; 71020; 71275; 74174; 74230; 80048; 80053; 80170; 82565; 82803; 83605; 83690; 83735; 84478; 84484; 85025; 85027; 86850; 86900; 86901; 87070; 87077; 87205; 93005; 93010; 94002; 94003; 94799; 96361; 96374; 96375; 99291; G8978-GP; G8979-GP; G8996-GN; G8997-GN; G8998-GN; J0131; J0330; J0360; J0456; J1170; J1335; J1580; J1644; J2250; J2704; J3010; J3411; J3475; J3480; J3490; J7030; J7060

== ENCOUNTER → 2016-10-22 | Outpatient (CLI) | payer MEDICARE, OTHER ==
--- NOTE | 2016-10-22 15:22 | RADIOLOGY REPORT (SQ) ---
EXAM DESCRIPTION: CT CHEST WITHOUT COMPLETED DATE/TIME: 10/22/2016 12:56 pm REASON FOR STUDY: PNEUMONIA J18.9 PNEUMONIA, UNSPECIFIED ORGANISM COMPARISON: Prior CT chest exams 08/26/2016, 08/01/2008 [facility] Prior CT chest 02/22/2016 [facility] TECHNIQUE: CT scan performed of the chest without intravenous contrast. Images reviewed with lung, soft tissue and bone windows. Reconstructed coronal and sagittal MPR images reviewed. All images st ored on PACS. All CT scanners at this facility use dose modulation, iterative reconstruction, and/or weight based d osing when appropriate to reduce radiation dose to as low as reasonably achievable (ALARA). [facility]: Dose Right [facility]: CareDose [facility]: Dose Right [facility]: Teradose 4D [facility]: [employer] RADIATION DOSE: Up-to-date CT equipment and radiation dose reduction techniques were employed. CTDIv ol: 5.4 mGy. DLP: 230 mGy-cm. mGy. LIMITATIONS: No technical limitations. FINDINGS: LUNGS AND PLEURA: The dense consolidation in the left lower lobe seen on 08/26/2016 has res olved. On today's study, minimal thickening of the interlobular septa are present in the left lower lobe in the area of prior dense pneumonia. Postinflammatory less than 4 mm noncalcified smooth round nodule left posterior lung base axial image 102 of doubtful significance. On axial image 45, a 7 mm ground-glass nodule is present in the left upper lobe this is new compared to prior studies. Old right upper lobectomy. There are surgical clips along the upper aspect of the right major fissur e. Narrowing of the right middle lobe bronchus is seen on axial images 59-61 No pleural effusions. No pneumothorax. HILAR AND MEDIASTINAL STRUCTURES: Surgical clips at the right hilum post upper lobectomy. Precarinal lymph node 2.2 x 1.2 cm in size, similar compared to CT exam 08/26/2016. Small hiatal hernia. HEART AND VASCULAR STRUCTURES: No aneurysm. No pericardial effusion. Very heavily calcified coronar y arteries with old sternotomy and CABG. UPPER ABDOMEN: No significant findings. Limited exam. THYROID AND OTHER SOFT TISSUES: No masses. No adenopathy. BONES: No significant finding. HARDWARE: Stable T8 50% compression deformity. OTHER: No other significant findings. IMPRESSION: Dense consolidation in the left lower lobe seen 08/26/2016 has cleared. Small alveolar nodule versus focal infiltrate left upper lobe 7 mm diameter. Narrowing of the right middle lobe bronchus TECHNICAL DOCUMENTATION: JOB ID: [id number] Quality ID # [id number]: Final reports with documentation of one or more dose reduction techniques (e.g., Au tomated exposure control, adjustment of the mA and/or kV according to patient size, use of iterative reconstruction technique) 2010 [employer]- All Rights Reserved
== END ==
LOC: RAD 12:37
PROVIDERS: ATTEND Internal Medicine Critical Care Medicine
DX: J18.9 Pneumonia, unspecified organism (principal)
CPT/HCPCS: 71250

== ENCOUNTER → 2017-01-26 | Outpatient (CLI) | payer MEDICARE, OTHER ==
--- NOTE | 2017-01-26 12:02 | RADIOLOGY REPORT (SQ) ---
EXAM DESCRIPTION: CT CHEST WITHOUT COMPLETED DATE/TIME: 01/26/2017 10:52 am REASON FOR STUDY: LUNG NODULE (R91.1) R91.1 SOLITARY PULMONARY NODULE COMPARISON: 10/22/2016 TECHNIQUE: CT scan performed of the chest without intravenous contrast. Images reviewed with lung, soft tissue and bone windows. Reconstructed coronal and sagittal MPR images reviewed. All images st ored on PACS. All CT scanners at this facility use dose modulation, iterative reconstruction, and/or weight based d osing when appropriate to reduce radiation dose to as low as reasonably achievable (ALARA). [facility]: Dose Right [facility]: CareDose [facility]: Dose Right [facility]: Teradose 4D [facility]: [employer] RADIATION DOSE: CT Rad equipment meets quality standard of care and radiation dose reduction techniq ues were employed. CTDIvol: 4.3 mGy. DLP: 185 mGy-cm. mGy. LIMITATIONS: No technical limitations. FINDINGS: LUNGS AND PLEURA: Postsurgical changes right upper lobectomy. Pleural thickening along th e major fissure. Left upper lobe ground-glass nodule has resolved. No suspicious nodules. Stable 3 mm nodule left lower lobe image 104. No effusions. HILAR AND MEDIASTINAL STRUCTURES: No identified masses or abnormal nodes. No obvious aneurysm. HEART AND VASCULAR STRUCTURES: No aneurysm. No pericardial effusion. UPPER ABDOMEN: No significant findings. Limited exam. THYROID AND OTHER SOFT TISSUES: No masses. No adenopathy. BONES: Chronic compression fracture mid thoracic spine. HARDWARE: None in the chest. OTHER: No other significant findings. IMPRESSION: Postsurgical changes. Stable pulmonary nodule. TECHNICAL DOCUMENTATION: JOB ID: [id number] Quality ID # [id number]: Final reports with documentation of one or more dose reduction techniques (e.g., Au tomated exposure control, adjustment of the mA and/or kV according to patient size, use of iterative reconstruction technique) 2010 [employer]- All Rights Reserved
== END ==
LOC: RAD 10:24
PROVIDERS: ATTEND Internal Medicine Critical Care Medicine
DX: R91.1 Solitary pulmonary nodule (principal)
CPT/HCPCS: 71250

== ENCOUNTER → 2017-07-28 | Outpatient (CLI) | payer MEDICARE, OTHER ==
--- NOTE | 2017-07-28 16:14 | RADIOLOGY REPORT (SQ) ---
EXAM DESCRIPTION: CT CHEST WITHOUT COMPLETED DATE/TIME: 07/28/2017 1:25 pm REASON FOR STUDY: LUNG CA (C34.90) C34.90 MALIGNANT NEOPLASM OF UNSP PART OF UNSP BRONCHUS OR L COMPARISON: Chest CT scan dated January 2017 TECHNIQUE: CT scan performed of the chest without intravenous contrast. Images reviewed with lung, soft tissue and bone windows. Reconstructed coronal and sagittal MPR images reviewed. All images st ored on PACS. All CT scanners at this facility use dose modulation, iterative reconstruction, and/or weight based d osing when appropriate to reduce radiation dose to as low as reasonably achievable (ALARA). [facility]: Dose Right [facility]: CareDose [facility]: Dose Right [facility]: Teradose 4D [facility]: [employer] RADIATION DOSE: CT Rad equipment meets quality standard of care and radiation dose reduction techniq ues were employed. CTDIvol: 5.3 mGy. DLP: 234 mGy-cm. mGy. LIMITATIONS: No technical limitations. FINDINGS: LUNGS AND PLEURA: The previously described postsurgical changes in the right upper lung fi eld and pleural thickening along the major fissure appears less pronounced on the current study. Romario ateral apical pleural and parenchymal scarring appear stable. The previously described 3 mm nodule i n the left lower lobe is again identified and is best seen on image number 103. It appears slightly more pronounced measuring 3.4 mm but this may be in part related to the small size of the nodule in s light difference in plane of section. Further followup is recommended a small pleural-based nodule i s identified in the left lower hemithorax medially best seen on image number 117 which appears more p rominent than on the previous study the nodule measures 7.6 mm and greatest diameter. Followup study in 6 to 12 months is recommended. No acute consolidations or pleural effusions are identified. HILAR AND MEDIASTINAL STRUCTURES: No identified masses or abnormal nodes. No obvious aneurysm. HEART AND VASCULAR STRUCTURES: No aneurysm. No pericardial effusion. UPPER ABDOMEN: Infrarenal abdominal aortic aneurysm is identified measuring 3.2 cm in diameter which is incompletely visualize. Extensive vascular calcifications are identified. Small right renal calc ulus is identified. Left renal cysts are again identified. THYROID AND OTHER SOFT TISSUES: No masses. No adenopathy. BONES: There is compression of 1 of the mid thoracic vertebra unchanged from the previous study. HARDWARE: Patient is status post median sternotomy. OTHER: No other significant findings. IMPRESSION: Postsurgical changes in the right upper lung field and pleural thickening along the david r fissure appears less pronounced on the current study. Small pulmonary nodules in the left lower he mithorax is noted above which appear more pronounced as compared to the previous study. Followup anish dy in 6 to 12 months is recommended. Other findings as noted above TECHNICAL DOCUMENTATION: JOB ID: [id number] Quality ID # [id number]: Final reports with documentation of one or more dose reduction techniques (e.g., Au tomated exposure control, adjustment of the mA and/or kV according to patient size, use of iterative reconstruction technique) 2010 [employer]- All Rights Reserved Reading location - IP/workstation name: [email or web address]
== END ==
LOC: RAD 12:55
PROVIDERS: ATTEND Internal Medicine Critical Care Medicine
DX: C34.90 Malignant neoplasm of unspecified part of unspecified bronchus or lung (principal)
CPT/HCPCS: 71250

== ENCOUNTER → 2018-01-27 | Outpatient (CLI) | payer MEDICARE, OTHER ==
--- NOTE | 2018-01-27 12:16 | RADIOLOGY REPORT (SQ) ---
EXAM DESCRIPTION: CT CHEST WITHOUT COMPLETED DATE/TIME: 01/27/2018 10:35 am REASON FOR STUDY: PULMONARY NODULES R91.8 OTHER NONSPECIFIC ABNORMAL FINDING OF LUNG FIELD COMPARISON: July 2017 TECHNIQUE: CT scan performed of the chest without intravenous contrast. Images reviewed with lung, soft tissue and bone windows. Reconstructed coronal and sagittal MPR images reviewed. All images st ored on PACS. All CT scanners at this facility use dose modulation, iterative reconstruction, and/or weight based d osing when appropriate to reduce radiation dose to as low as reasonably achievable (ALARA). [facility]: Dose Right [facility]: CareDose [facility]: Dose Right [facility]: Teradose 4D [facility]: Smart Weblio RADIATION DOSE: CT Rad equipment meets quality standard of care and radiation dose reduction techniq ues were employed. CTDIvol: 5.3 mGy. DLP: 220 mGy-cm. mGy. LIMITATIONS: No technical limitations. FINDINGS: LUNGS AND PLEURA: The previously described postsurgical changes in the right upper lung fi eld and pleural thickening along the major fissure are again identified. Bilateral apical pleural an d parenchymal scarring is again identified. There is a somewhat triangular density along planes of t he postsurgical changes and pleural and parenchymal scarring in the right lung apex showing interval increase in size as compared to the previous study now measuring 14 x 9 mm in greatest diameters. Th e possibility of a recurrent neoplastic process or metastatic disease cannot be excluded. PET-CT sca n may be of value for further evaluation. The previously described tiny pulmonary nodule in the left lower lobe is again identified and is best seen on image number 102 on the current study and appears smaller than on the previous study. The previously described pleural-based nodule in the left lower hemithorax medially is no longer identified. On the current study there is a triangular pleural bas e nodule in the posterior sulcus on the left measuring 12 x 7 mm in diameters which was not present o n the previous study. This triangular density is continuous with a linear density in the left lower lung field medially which appears more pronounced than on the previous study. Again a PET-CT scan ma y be of value for further evaluation no airspace consolidations or pleural effusions are identified. HILAR AND MEDIASTINAL STRUCTURES: No identified masses or abnormal nodes. No obvious aneurysm. HEART AND VASCULAR STRUCTURES: No aneurysm. No pericardial effusion. Coronary artery calcifications are identified. UPPER ABDOMEN: No significant findings. Limited exam. THYROID AND OTHER SOFT TISSUES: No masses. No adenopathy. BONES: No significant finding. There is approximately 50% compression of 1 of the midthoracic verteb ra unchanged from the previous study HARDWARE: Patient is status post median sternotomy. OTHER: No other significant findings. IMPRESSION: Somewhat triangular density along the planes of the postsurgical changes and pleural-par enchymal scarring in the right lung apex showing interval increase in size. Triangular pleural base nodule in the posterior sulcus on the left as noted above showing interval increase in size. PET-CT scan may be of value for further evaluation. Other findings as noted above TECHNICAL DOCUMENTATION: JOB ID: [id number] Quality ID # [id number]: Final reports with documentation of one or more dose reduction techniques (e.g., Au tomated exposure control, adjustment of the mA and/or kV according to patient size, use of iterative reconstruction technique) 2010 [employer]- All Rights Reserved Reading location - IP/workstation name: [facility]
== END ==
LOC: RAD 10:16
PROVIDERS: ATTEND Physician Assistant
DX: R91.8 Other nonspecific abnormal finding of lung field (principal)
CPT/HCPCS: 71250

== ENCOUNTER → 2018-07-22 | Outpatient (CLI) | payer OTHER ==
--- NOTE | 2018-07-22 12:56 | RADIOLOGY REPORT (SQ) ---
EXAM DESCRIPTION: CHEST 2 VIEWS COMPLETED DATE/TIME: 07/22/2018 12:11 pm REASON FOR STUDY: COUGH (R05), SMOKER COMPARISON: 08/28/2016 EXAM PARAMETERS: NUMBER OF VIEWS: two views TECHNIQUE: Digital Frontal and Lateral radiographic views of the chest acquired. RADIATION DOSE: NA LIMITATIONS: none FINDINGS: LUNGS AND PLEURA: No opacities, masses or pneumothorax. No pleural effusion. MEDIASTINUM AND HILAR STRUCTURES: No masses or contour abnormalities. HEART AND VASCULAR STRUCTURES: Heart normal size. No evidence for failure. BONES: No acute findings. HARDWARE: Sternotomy wires. OTHER: No other significant finding. IMPRESSION: NO ACUTE RADIOGRAPHIC FINDING IN THE CHEST. TECHNICAL DOCUMENTATION: JOB ID: [id number] [employer]- All Rights Reserved Reading location - IP/workstation name: [email or web address]
== END ==
LOC: RAD 11:28
PROVIDERS: ATTEND Family Medicine
DX: R05 Cough (principal)
CPT/HCPCS: 71046